=== PATIENT | male | born 1945 | race Caucasian/White ===

== ENCOUNTER 2016-11-15 15:57 | Inpatient (IN) | payer MEDICARE, OTHER ==
--- NOTE | 2016-11-15 16:11 | ED Physician Chart ---
Chief Complaint/HPI - Patient Information Date Seen:: 11/15/16 Time Seen:: 16:00 Chief Complaint:: suicide ideation History of Present Illness:: Patient has dementia. According to the staff at his extended care facility he has expressed recent suicidal ideation although patient currently denies it. Patient has also been refusing medications for the last 3 days. It is also documented in the transfer document that the patient is a flight risk. Historian:: Patient, EMS Review:: Transfer documents Reviewed Review of Systems - Review of Systems General/Constitutional: No fever, No chills Skin: No skin lesions Head: No headache Eyes: No loss of vision ENT: No earache Neck: No neck pain, No swelling Cardio Vascular: No chest pain, No palpitations Pulmonary: No SOB GI: No nausea, No vomiting G/U: No dysuria Musculoskeletal: No bone or joint pain, No muscle pain Endocrine: No polyuria, No polydipsia Psychiatric: Prior psych history Hematopoietic: No bruising Allergic/Immuno: No urticaria Neurological: No syncope, No focal symptoms Past Medical History - Past Medical History Past Medical History: HTN, Dementia, Other (cerebrovascular accidents 2) Family History: None Social History: Smoker, No Alcohol, Care Facility Surgical History: other (patient states he's had several surgeries but can't remember which ones) Psychiatricy History: Depression, Dementia, Other (psychosis) Medication: Reviewed Family Medical History - Family Member Mother History Unknown: Yes Labs/Radiology/EKG Results - Lab Results Results: Laboratory Results - last 24 hr 11/15/16 11/15/16 16:12 16:12 WBC 11.7 H RBC 4.58 Hgb 13.6 Hct 40.8 MCV 89.1 MCH 29.7 MCHC Differential 33.3 RDW 12.6 Plt Count 332 MPV 7.3 Neutrophils % 75.2 Lymphocytes % 15.0 L Monocytes % 8.5 Eosinophils % 0.9 Basophils % 0.4 Sodium 134 L Potassium 4.1 Chloride 103 Carbon Dioxide 27.5 Anion Gap 7.6 BUN 23 Creatinine 1.2 Est GFR ( Amer) > 60.0 Est GFR (Non-Af Amer) > 60.0 BUN/Creatinine Ratio 19.2 Glucose 227 H Calcium 9.3 Total Bilirubin 0.3 AST 14 ALT 14 Alkaline Phosphatase 75 Total Protein 7.0 Albumin 4.4 Globulin 2.6 Albumin/Globulin Ratio 1.7 Triglycerides 362 H Cholesterol 133 LDL Cholesterol Direct 67 L HDL Cholesterol 32 - EKG Interpretations Rate & Rhythm: NSR rate 81 [place]: normal Assessment - Assessment General Assessment: Patient had some right inferior chest and right upper quadrant pain during his stay in the emergency department received rapidly with 30 mL of Maalox ED Septic Shock - . Is Septic Shock (SBP<90, OR Lactate>4 mmol\L) present?: No Reassessment (Disposition) - Diagnosis Diagnosis:: Suicide ideation; dementia; diabetes; hyperglycemia - Patient Disposition Admitted to:: [facility] Admitting Medical Physician:: Gunnar Glez Admitting Psych Physician:: Eric Wood Condition at Disposition:: Stable, Unchanged
[2016-11-15 16:19] LABS: % BASOPHILS 0.4 % (0.0-2.0); % EOSINOPHILS 0.9 % (0.0-5.0); % MONOCYTES 8.5 % (2.0-10.0); % NEUTROPHILS 75.2 % (40.0-80.0); HEMATOCRIT 40.8 % (39.0-49.0); HEMOGLOBIN 13.6 gm/dL (12.6-17.4); MEAN CELL VOLUME 89.1 fl (80-99); MEAN CORPUSCULAR HEMOGLOBIN 29.7 pg (27.0-31.0); MEAN CORPUSCULAR HGB CONC 33.3 pg (28.0-36.0); MEAN PLATELET VOLUME 7.3 fl; NEUTROPHILE ABSOLUTE 8.8 Th/cmm (1.8-8.0); PLATELET COUNT 332 Th/cmm (150-400); RED BLOOD COUNT 4.58 Mil/cmm (3.80-5.80); RED CELL DISTRIBUTION WIDTH 12.6 % (11.5-20.0); WHITE BLOOD COUNT 11.7 Th/cmm (4.8-10.8)
[2016-11-15 16:36] LABS: ALB/GLOB RATIO 1.7 (1.0-1.8); ALKALINE PHOSPHATASE 75 U/L (34-104); ANION GAP 7.6 (7.0-16.0); BILIRUBIN,TOTAL 0.3 mg/dL (0.3-1.0); BUN - UREA NITROGEN 23 mg/dL (7-25); BUN/CREATININE RATIO 19.2; CALCIUM SERUM 9.3 mg/dL (8.6-10.3); CARBON DIOXIDE 27.5 mEq/L (21.0-31.0); CHLORIDE 103 mEq/L (98-107); CHOLESTEROL 133 mg/dL (<200); CREATININE - SERUM 1.2 mg/dL (0.7-1.3); GLUCOSE 227 mg/dL (70-105); POTASSIUM SERUM 4.1 mEq/L (3.5-5.1); SGOT 14 U/L (13-39); SGPT/ALT 14 U/L (7-52); SODIUM SERUM 134 mEq/L (136-145); TRIGLYCERIDES 362 mg/dL (<150)
[2016-11-15] MEDS ORDERED: Maalox 30 mL Cup PO ONE (16:54)
[2016-11-15] MEDS ORDERED: Maalox 30 mL Cup ONE (16:55)
[2016-11-15 17:58] LABS: URINE BILIRUBIN NEGATIVE (NEGATIVE); URINE BLOOD NEGATIVE (NEGATIVE); URINE GLUCOSE (UA) 500 mg/dL (NEGATIVE); URINE KETONE NEGATIVE (NEGATIVE); URINE PROTEIN NEGATIVE (NEGATIVE); URINE UROBILINOGEN 0.2 E.U./dL (0.2 - 1.0)
[2016-11-15 18:03] LABS: URINE BACTERIA OCCASIONAL /hpf (NONE SEEN); URINE COLOR YELLOW; URINE EPITHELIAL CELLS RARE /lpf (FEW); URINE RBC 0-1 /hpf (0-5)
[2016-11-15 19:47] VITALS: BP 135/85
[2016-11-15] MEDS ORDERED: Maalox 30 mL Cup PO PRN (19:48)
[2016-11-15] MEDS ORDERED: Magnesium Hydroxide (MOM) 30 mL UDC PO PRN (19:48)
[2016-11-15] MEDS ORDERED: Escitalopram Oxalate 5 mg Tab PO SCH (21:00)
[2016-11-15] MEDS ORDERED: INSULIN ASPART, RECOMBINANT 100 UNITS/ML SUBQ SCH (21:00)
[2016-11-16] MEDS: INSULIN ASPART, RECOMBINANT 100 UNITS/ML SUBQ SCH ×4 (06:35→21:20)
--- NOTE | 2016-11-16 15:31 | Internal Medicine Prog Note ---
Internal Medicine Subjective - Subjective Service Date: 11/16/16 (hnp dictated) Internal Medicine Objective - Results Result Diagrams: 11/15/16 16:12 11/15/16 16:12 Recent Labs: Laboratory Last Values WBC 11.7 Th/cmm (4.8-10.8) H 11/15/16 16:12 RBC 4.58 Mil/cmm (3.80-5.80) 11/15/16 16:12 Hgb 13.6 gm/dL (12.6-17.4) 11/15/16 16:12 Hct 40.8 % (39.0-49.0) 11/15/16 16:12 MCV 89.1 fl (80-99) 11/15/16 16:12 MCH 29.7 pg (27.0-31.0) 11/15/16 16:12 MCHC Differential 33.3 pg (28.0-36.0) 11/15/16 16:12 RDW 12.6 % (11.5-20.0) 11/15/16 16:12 Plt Count 332 Th/cmm (150-400) 11/15/16 16:12 MPV 7.3 fl 11/15/16 16:12 Neutrophils % 75.2 % (40.0-80.0) 11/15/16 16:12 Lymphocytes % 15.0 % (20.0-50.0) L 11/15/16 16:12 Monocytes % 8.5 % (2.0-10.0) 11/15/16 16:12 Eosinophils % 0.9 % (0.0-5.0) 11/15/16 16:12 Basophils % 0.4 % (0.0-2.0) 11/15/16 16:12 Sodium 134 mEq/L (136-145) L 11/15/16 16:12 Potassium 4.1 mEq/L (3.5-5.1) 11/15/16 16:12 Chloride 103 mEq/L (98-107) 11/15/16 16:12 Carbon Dioxide 27.5 mEq/L (21.0-31.0) 11/15/16 16:12 Anion Gap 7.6 (7.0-16.0) 11/15/16 16:12 BUN 23 mg/dL (7-25) 11/15/16 16:12 Creatinine 1.2 mg/dL (0.7-1.3) 11/15/16 16:12 Est GFR ( Amer) > 60.0 ml/min (>90) 11/15/16 16:12 Est GFR (Non-Af Amer) > 60.0 ml/min 11/15/16 16:12 BUN/Creatinine Ratio 19.2 11/15/16 16:12 Glucose 227 mg/dL (70-105) H 11/15/16 16:12 POC Glucose 228 MG/DL (70 - 105) H 11/16/16 11:33 Hemoglobin A1c % 7.9 % (4.0-6.0) H 11/15/16 16:12 Calcium 9.3 mg/dL (8.6-10.3) 11/15/16 16:12 Total Bilirubin 0.3 mg/dL (0.3-1.0) 11/15/16 16:12 AST 14 U/L (13-39) 11/15/16 16:12 ALT 14 U/L (7-52) 11/15/16 16:12 Alkaline Phosphatase 75 U/L (34-104) 11/15/16 16:12 Total Protein 7.0 gm/dL (6.0-8.3) 11/15/16 16:12 Albumin 4.4 gm/dL (4.2-5.5) 11/15/16 16:12 Globulin 2.6 gm/dL 11/15/16 16:12 Albumin/Globulin Ratio 1.7 (1.0-1.8) 11/15/16 16:12 Triglycerides 362 mg/dL (<150) H 11/15/16 16:12 Cholesterol 133 mg/dL (<200) 11/15/16 16:12 LDL Cholesterol Direct 67 mg/dL (75-193) L 11/15/16 16:12 HDL Cholesterol 32 mg/dL (23-92) 11/15/16 16:12 TSH 1.35 uIU/ml (0.34-5.60) 11/15/16 16:12 Urine Source CLEAN C 11/15/16 17:10 Urine Color YELLOW 11/15/16 17:10 Urine Clarity CLEAR (CLEAR) 11/15/16 17:10 Urine pH 6.0 (4.6 - 8.0) 11/15/16 17:10 Ur Specific [place] 1.020 (1.005-1.030) 11/15/16 17:10 Urine Protein NEGATIVE mg/dL (NEGATIVE) 11/15/16 17:10 Urine Glucose (UA) 500 mg/dL (NEGATIVE) H 11/15/16 17:10 Urine Ketones NEGATIVE mg/dL (NEGATIVE) 11/15/16 17:10 Urine Blood NEGATIVE (NEGATIVE) 11/15/16 17:10 Urine Nitrate NEGATIVE (NEGATIVE) 11/15/16 17:10 Urine Bilirubin NEGATIVE (NEGATIVE) 11/15/16 17:10 Urine Urobilinogen 0.2 E.U./dL (0.2 - 1.0) 11/15/16 17:10 Ur Leukocyte Esterase NEGATIVE (NEGATIVE) 11/15/16 17:10 Urine RBC 0-1 /hpf (0-5) 11/15/16 17:10 Urine WBC 2-5 /hpf (0-5) H 11/15/16 17:10 Ur Epithelial Cells RARE /lpf (FEW) 11/15/16 17:10 Urine Bacteria OCCASIONAL /hpf (NONE SEEN) 11/15/16 17:10 Urine Mucus FEW /lpf (FEW) 11/15/16 17:10 - Physical Exam Vitals and I&O: Vital Signs Temp 98.5 F 11/15/16 17:15 Pulse 78 11/15/16 17:15 Resp 21 11/16/16 08:00 BP 135/85 11/15/16 19:46 Pulse Ox 96 11/15/16 17:15 Active Medications: Current Medications Acetaminophen (Tylenol) 650 mg PO Q6H PRN PRN Reason: Mild Pain/Headache/T above 101 Stop: 01/14/17 19:47 Al Hydrox/Mg Hydrox/Simethicone (Maalox) 30 ml PO Q6H PRN PRN Reason: Dyspepsia Stop: 01/14/17 19:47 Donepezil HCl (Aricept) 10 mg PO HS ELEAZAR Stop: 01/14/17 20:59 Last Admin: 11/15/16 22:11 Dose: 10 mg Escitalopram Oxalate (Lexapro) 5 mg PO HS ELEAZAR PRN Reason: Protocol Stop: 01/14/17 20:59 Insulin Aspart (Novolog) 0 units SUBQ ACHS ELEAZAR PRN Reason: Protocol Stop: 01/15/17 07:29 Last Admin: 11/16/16 11:53 Dose: 2 units Lorazepam (Ativan) 1 mg PO Q6H PRN; Protocol PRN Reason: Anxiety/Agitation Stop: 01/14/17 19:47 Magnesium Hydroxide (Milk Of Magnesia) 30 ml PO HS PRN PRN Reason: Constipation Stop: 01/14/17 19:47 Metformin HCl (Glucophage) 850 mg PO BID ELEAZAR Stop: 01/15/17 08:59 Last Admin: 11/16/16 09:25 Dose: 850 mg Risperidone (Risperdal) 0.25 mg PO HS ELEAZAR Stop: 01/14/17 20:59 Sitagliptin Phosphate (Januvia) 50 mg PO DAILY ELEAZAR Stop: 01/15/17 08:59 Last Admin: 11/16/16 09:31 Dose: 50 mg Zolpidem Tartrate (Ambien) 5 mg PO HS PRN PRN Reason: Insomnia Stop: 01/14/17 19:47 Internal Medicine Assmt/Plan - Assessment Assessment: HTN Dementia si
--- NOTE | 2016-11-16 18:20 | History & Physical ---
ADMIT DATE: 11/16/2016 CHIEF COMPLAINT: : Suicidal ideation. HISTORY OF PRESENT ILLNESS: This is a 70-year-old male who is a resident of [facility], was brought here to [facility] for 1-day history of suicidal ideation. The patient has been also refusing medications for the last 3 days. For this reason, the patient is now admitted to the Geropsych Unit. PAST MEDICAL HISTORY: Hypertension, dementia, CVA x 2. SOCIAL HISTORY: The patient is a shelter resident, requiring 24-hour nursing care. SURGICAL HISTORY: The patient cannot remember whatever surgeries he had. PSYCHIATRIC HISTORY: Depression and dementia. MEDICATIONS: Please see medication reconciliation sheet. REVIEW OF SYSTEMS: GENERAL: Denies any fever or chills. CARDIOVASCULAR: Denies any chest pain. RESPIRATORY: Denies any shortness of breath. GASTROINTESTINAL: Denies nausea, vomiting. GENITOURINARY: Denies dysuria. All other systems are reviewed by me and are negative. PHYSICAL EXAMINATION: GENERAL: The patient is well developed, well nourished, no acute distress. VITAL SIGNS: Temperature 98.5, heart rate 78, blood pressure 133/84, respirations 18, O2 96%. HEENT: Head; normocephalic, atraumatic. NECK: Supple. No mass. LUNGS: Clear bilaterally. HEART: Regular rate and rhythm. ABDOMEN: Soft, nontender. LABORATORY DATA: WBC 11.7, H and H 13.6 and 40.8, platelets 332. Sodium 134, potassium ____, chloride 103, BUN 23, creatinine 1.2, hemoglobin A1c is 7.9. ASSESSMENT: 1. Suicidal ideation. 2. Hypertension. 3. Dementia. PLAN: The patient will be admitted to the Geropsych Unit. The patient to continue same medications the patient was taking at the shelter. We will continue to follow this patient. [facility]# [id number]
[2016-11-16] MEDS: Escitalopram Oxalate 5 mg Tab PO SCH (21:20)
--- NOTE | 2016-11-17 02:51 | Psychosocial Evaluation ---
DATE OF SERVICE: 11/15/2016 IDENTIFYING DATA: The patient is a 70-year-old male, resident of [facility]. Information obtained by directly interviewing the patient as well as reviewing the admission papers and talking to the staff members. The patient has been reported to have been screaming and yelling and getting easily agitated and also has been confused and depressed and hence the patient has been reported over here for further care. The patient is admitted here on a voluntary basis. I have interviewed the patient and Staff was spoken to. During the interview, the patient is stating that he could not bear it out that he needs to go home. At the time of the hospitalization, the patient has been on the Lexapro 5 mg, Risperdal 0.25 mg. The patient continues to be very paranoid and is not making any sense, but patient has been, however, insisting on having his way. PAST PSYCHIATRIC HISTORY: The patient is reported to have been hospitalized at [facility] recently and details are not known at this time. Physical examination is requested to be done by Dr. Glez. SUBSTANCE ABUSE HISTORY: None. PHYSICAL OR SEXUAL ABUSE HISTORY: None. LEGAL PROBLEMS: None at this time. SOCIAL HISTORY: The patient is a resident of the [facility]. STRENGTH AND ASSETS: The patient is motivated. MENTAL STATUS EXAMINATION: The patient is a 70-year-old thin built, superficially cooperative. Eye contact is fair. Mood is irritable. Affect is constricted. Coping skills are noted to be poor. The patient is getting easily agitated. The patient has no insight into his illness. The patient has been testing the limits. The patient's short-term and long-term memory are noted to be impaired. The patient is not able to contract for safety at this time. The patient is reported to have been feeling depressed still, but no suicidal plans or voices. The patient is not homicidal. The patient's short and long-term noted to be impaired. Attention span and concentration are also noted to be poor. DIAGNOSTIC IMPRESSION: AXIS I: Major depressive disorder, recurrent with psychotic symptoms. B. Dementia and behavioral change, secondary to it. AXIS II: None. AXIS III: Diabetes mellitus. IMMEDIATE TREATMENT PLAN: The patient is going to be observed on inpatient unit, provided with supportive psychotherapy. The patient is going to be closely monitored. We encouraged him to participate in groups and verbalize the concerns. Once stabilized, the patient is going to be discharged to self to be followed up on an outpatient basis. [facility]# [id number]
[2016-11-17] MEDS: INSULIN ASPART, RECOMBINANT 100 UNITS/ML SUBQ SCH ×4 (06:50→23:03)
--- NOTE | 2016-11-17 08:54 | Internal Medicine Prog Note ---
Internal Medicine Subjective - Subjective Service Date: 11/17/16 Patient seen and examined:: with staff Patient is:: awake Per staff patient has:: no adverse event Internal Medicine Objective - Results Result Diagrams: 11/15/16 16:12 11/15/16 16:12 Recent Labs: Laboratory Last Values WBC 11.7 Th/cmm (4.8-10.8) H 11/15/16 16:12 RBC 4.58 Mil/cmm (3.80-5.80) 11/15/16 16:12 Hgb 13.6 gm/dL (12.6-17.4) 11/15/16 16:12 Hct 40.8 % (39.0-49.0) 11/15/16 16:12 MCV 89.1 fl (80-99) 11/15/16 16:12 MCH 29.7 pg (27.0-31.0) 11/15/16 16:12 MCHC Differential 33.3 pg (28.0-36.0) 11/15/16 16:12 RDW 12.6 % (11.5-20.0) 11/15/16 16:12 Plt Count 332 Th/cmm (150-400) 11/15/16 16:12 MPV 7.3 fl 11/15/16 16:12 Neutrophils % 75.2 % (40.0-80.0) 11/15/16 16:12 Lymphocytes % 15.0 % (20.0-50.0) L 11/15/16 16:12 Monocytes % 8.5 % (2.0-10.0) 11/15/16 16:12 Eosinophils % 0.9 % (0.0-5.0) 11/15/16 16:12 Basophils % 0.4 % (0.0-2.0) 11/15/16 16:12 Sodium 134 mEq/L (136-145) L 11/15/16 16:12 Potassium 4.1 mEq/L (3.5-5.1) 11/15/16 16:12 Chloride 103 mEq/L (98-107) 11/15/16 16:12 Carbon Dioxide 27.5 mEq/L (21.0-31.0) 11/15/16 16:12 Anion Gap 7.6 (7.0-16.0) 11/15/16 16:12 BUN 23 mg/dL (7-25) 11/15/16 16:12 Creatinine 1.2 mg/dL (0.7-1.3) 11/15/16 16:12 Est GFR ( Amer) > 60.0 ml/min (>90) 11/15/16 16:12 Est GFR (Non-Af Amer) > 60.0 ml/min 11/15/16 16:12 BUN/Creatinine Ratio 19.2 11/15/16 16:12 Glucose 227 mg/dL (70-105) H 11/15/16 16:12 POC Glucose 237 MG/DL (70 - 105) H 11/17/16 06:35 Hemoglobin A1c % 7.9 % (4.0-6.0) H 11/15/16 16:12 Calcium 9.3 mg/dL (8.6-10.3) 11/15/16 16:12 Total Bilirubin 0.3 mg/dL (0.3-1.0) 11/15/16 16:12 AST 14 U/L (13-39) 11/15/16 16:12 ALT 14 U/L (7-52) 11/15/16 16:12 Alkaline Phosphatase 75 U/L (34-104) 11/15/16 16:12 Total Protein 7.0 gm/dL (6.0-8.3) 11/15/16 16:12 Albumin 4.4 gm/dL (4.2-5.5) 11/15/16 16:12 Globulin 2.6 gm/dL 11/15/16 16:12 Albumin/Globulin Ratio 1.7 (1.0-1.8) 11/15/16 16:12 Triglycerides 362 mg/dL (<150) H 11/15/16 16:12 Cholesterol 133 mg/dL (<200) 11/15/16 16:12 LDL Cholesterol Direct 67 mg/dL (75-193) L 11/15/16 16:12 HDL Cholesterol 32 mg/dL (23-92) 11/15/16 16:12 TSH 1.35 uIU/ml (0.34-5.60) 11/15/16 16:12 Urine Source CLEAN C 11/15/16 17:10 Urine Color YELLOW 11/15/16 17:10 Urine Clarity CLEAR (CLEAR) 11/15/16 17:10 Urine pH 6.0 (4.6 - 8.0) 11/15/16 17:10 Ur Specific [place] 1.020 (1.005-1.030) 11/15/16 17:10 Urine Protein NEGATIVE mg/dL (NEGATIVE) 11/15/16 17:10 Urine Glucose (UA) 500 mg/dL (NEGATIVE) H 11/15/16 17:10 Urine Ketones NEGATIVE mg/dL (NEGATIVE) 11/15/16 17:10 Urine Blood NEGATIVE (NEGATIVE) 11/15/16 17:10 Urine Nitrate NEGATIVE (NEGATIVE) 11/15/16 17:10 Urine Bilirubin NEGATIVE (NEGATIVE) 11/15/16 17:10 Urine Urobilinogen 0.2 E.U./dL (0.2 - 1.0) 11/15/16 17:10 Ur Leukocyte Esterase NEGATIVE (NEGATIVE) 11/15/16 17:10 Urine RBC 0-1 /hpf (0-5) 11/15/16 17:10 Urine WBC 2-5 /hpf (0-5) H 11/15/16 17:10 Ur Epithelial Cells RARE /lpf (FEW) 11/15/16 17:10 Urine Bacteria OCCASIONAL /hpf (NONE SEEN) 11/15/16 17:10 Urine Mucus FEW /lpf (FEW) 11/15/16 17:10 RPR NONREACTIVE (NONREACTIVE) 11/15/16 16:12 - Physical Exam Vitals and I&O: Vital Signs Temp 98.1 F 11/17/16 06:04 Pulse 96 11/17/16 06:04 Resp 20 11/17/16 06:04 BP 140/78 11/17/16 06:04 Pulse Ox 98 11/17/16 06:04 Intake & Output 11/16/16 11/17/16 11/17/16 18:59 06:59 18:59 Intake Total 800 720 Balance 800 720 Intake: Oral 800 720 Other: # Voids 3 1 # Bowel Movements 1 Active Medications: Current Medications Acetaminophen (Tylenol) 650 mg PO Q6H PRN PRN Reason: Mild Pain/Headache/T above 101 Stop: 01/14/17 19:47 Al Hydrox/Mg Hydrox/Simethicone (Maalox) 30 ml PO Q6H PRN PRN Reason: Dyspepsia Stop: 01/14/17 19:47 Donepezil HCl (Aricept) 10 mg PO HS ELEAZAR Stop: 01/14/17 20:59 Last Admin: 11/16/16 21:20 Dose: 10 mg Escitalopram Oxalate (Lexapro) 10 mg PO HS ELEAZAR PRN Reason: Protocol Stop: 01/15/17 20:59 Last Admin: 11/16/16 21:20 Dose: 10 mg Insulin Aspart (Novolog) 0 units SUBQ ACHS ELEAZAR PRN Reason: Protocol Stop: 01/15/17 07:29 Last Admin: 11/17/16 06:50 Dose: 2 units Lorazepam (Ativan) 1 mg PO Q6H PRN; Protocol PRN Reason: Anxiety/Agitation Stop: 01/14/17 19:47 Magnesium Hydroxide (Milk Of Magnesia) 30 ml PO HS PRN PRN Reason: Constipation Stop: 01/14/17 19:47 Metformin HCl (Glucophage) 850 mg PO BID ELEAZAR Stop: 01/15/17 08:59 Last Admin: 11/16/16 17:12 Dose: 850 mg Risperidone (Risperdal) 0.25 mg PO HS ELEAZAR Stop: 01/14/17 20:59 Sitagliptin Phosphate (Januvia) 50 mg PO DAILY ELEAZAR Stop: 01/15/17 08:59 Last Admin: 11/16/16 09:31 Dose: 50 mg Zolpidem Tartrate (Ambien) 5 mg PO HS PRN PRN Reason: Insomnia Stop: 01/14/17 19:47 General: alert HEENT: NC/AT, PERRLA Neck: Supple Lungs: CTAB Cardiovascular: RRR, Normal S1, Normal S2, without murmur Abdomen: soft, non-tender, non-distended Extremities: clear Neurological: no change, alert Internal Medicine Assmt/Plan - Assessment Assessment: HTN Dementia si - Plan Plan: monitor bp continue bp meds psych f/u Nutritional Asmnt/Malnutr-PDOC - Dietary Evaluation Malnutrition Findings (Please click <Entered> for more info): Nutritional Asmnt/Malnutrition Start: 11/16/16 12: 33 Text: Status: Complete Freq: Document 11/16/16 18:16 [facility] (Rec: 11/16/16 18:23 [facility] [id number]) Nutritional Asmnt/Malnutrition Patient General Information Nutritional Screening High Risk Screening Diagnosis Suicide ideation, hyperglycemia Pertinent Medical Hx/Surgical Hx HTN, dementia, CVAx2, depression, psychosis Subjective Information Pt is a 70-year-old male from [facility] admitted with chief complaint of suicidal ideation. Pt has dementia and per RN notes, pt is confused. Current Diet Order/ Nutrition Support CCHO, low sodium, mechanical soft chopped Patient / S.O Can't verbalize diet edu Pertinent Medications Glucophage, Januvia Pertinent Labs (11/15) Glucose 227H, A1C 7.9H, Triglycerides 362H. (11/16) POC Glucose 177-228H Nutritional Hx/Data Height 6 ft Height (Calculated Centimeters) 182.9 Current Weight (lbs) 186 lb Weight (Calculated Kilograms) 84.4 Weight (Calculated Grams) 03518.2 [place] Body Weight 172 % [place] Body Weight 108 Weight Status Approriate GI Symptoms GI Symptoms None Food Allergies No Usual diet at home Mechanical soft, CCHO, ERI Skin Integrity/Comment: [place] 19. Skin intact. Current %PO Good (75-100%) Estimated Nutritional Goals BEE in Kcals: Using Current wt Calories/Kcals/Kg Based on current wt 84.5 kg Kcals Calculated 2494-6334 kcals/day (25-30 kcals/kg) Protein: Using Current wt Protein g/kg: Based on current wt 84.5 kg Protein Calculated 85 gm/day (1 gm/kg) Fluid: ml 4397-4330 ml/day (1 ml/kcal) Nutritional Problem 1. Problem Problem Altered nutrition-related laboratory value related to Etiology DM, possible inconsistent carbohydrate intake as evidenced by Signs/Symptoms: A1C 7.9%, admitting glucose 227 mg/dl. Malnutrition Related to Morbid Obesity Malnutrition related to morbid obesity No Intervention/Recommendation Recommendations by RD Dietary Education by RD1 Increase Calorie Intake Comments 1. Recommend CCHO-90 GM to better meet pt's nutritional needs. Adequate carbohydrate intake will help to regulate blood glucose. 2. Educate pt or family on CCHO diet, as able. Expected Outcomes/Goals Expected Outcomes/Goals Blood glucose levels will trend towards desired parameters. Physician Parameters for PEM Normal Weight % 90% - 110% (Normal) Body Mass Index (BMI) 19 - 24 (Normal) Serum Albumin (g/dl) 3.5 - 5.0 (Normal)
--- NOTE | 2016-11-17 12:02 | Progress Notes ---
DATE: 11/17/2016 SUBJECTIVE: Staff was spoken to. The patient is interviewed. Mood is noted to be irritable. Affect is constricted. Coping skills are noted to be very poor. Insight and judgment are also noted very poor. The patient has been having difficult time to cope with the stress. The patient is demanding that he should be discharged back to the facility stating that he does not like getting here. No side effects to the medications are noted. The patient is currently on 0.25 mg of Risperdal. PLAN: Plan to increase the dose on this medication to 0.5 mg and I encouraged the patient to verbalize the concerns rather than to act out. He is still psychotic and impulsive and the patient has been having difficult time to ____. JOB# [id number]
[2016-11-17] MEDS: Escitalopram Oxalate 5 mg Tab PO SCH (20:54)
[2016-11-18] MEDS: INSULIN ASPART, RECOMBINANT 100 UNITS/ML SUBQ SCH ×4 (06:36→20:50)
--- NOTE | 2016-11-18 08:59 | Internal Medicine Prog Note ---
Internal Medicine Subjective - Subjective Service Date: 11/18/16 Patient is:: awake Per staff patient has:: no adverse event Internal Medicine Objective - Results Result Diagrams: 11/15/16 16:12 11/15/16 16:12 Recent Labs: Laboratory Last Values WBC 11.7 Th/cmm (4.8-10.8) H 11/15/16 16:12 RBC 4.58 Mil/cmm (3.80-5.80) 11/15/16 16:12 Hgb 13.6 gm/dL (12.6-17.4) 11/15/16 16:12 Hct 40.8 % (39.0-49.0) 11/15/16 16:12 MCV 89.1 fl (80-99) 11/15/16 16:12 MCH 29.7 pg (27.0-31.0) 11/15/16 16:12 MCHC Differential 33.3 pg (28.0-36.0) 11/15/16 16:12 RDW 12.6 % (11.5-20.0) 11/15/16 16:12 Plt Count 332 Th/cmm (150-400) 11/15/16 16:12 MPV 7.3 fl 11/15/16 16:12 Neutrophils % 75.2 % (40.0-80.0) 11/15/16 16:12 Lymphocytes % 15.0 % (20.0-50.0) L 11/15/16 16:12 Monocytes % 8.5 % (2.0-10.0) 11/15/16 16:12 Eosinophils % 0.9 % (0.0-5.0) 11/15/16 16:12 Basophils % 0.4 % (0.0-2.0) 11/15/16 16:12 Sodium 134 mEq/L (136-145) L 11/15/16 16:12 Potassium 4.1 mEq/L (3.5-5.1) 11/15/16 16:12 Chloride 103 mEq/L (98-107) 11/15/16 16:12 Carbon Dioxide 27.5 mEq/L (21.0-31.0) 11/15/16 16:12 Anion Gap 7.6 (7.0-16.0) 11/15/16 16:12 BUN 23 mg/dL (7-25) 11/15/16 16:12 Creatinine 1.2 mg/dL (0.7-1.3) 11/15/16 16:12 Est GFR ( Amer) > 60.0 ml/min (>90) 11/15/16 16:12 Est GFR (Non-Af Amer) > 60.0 ml/min 11/15/16 16:12 BUN/Creatinine Ratio 19.2 11/15/16 16:12 Glucose 227 mg/dL (70-105) H 11/15/16 16:12 POC Glucose 216 MG/DL (70 - 105) H 11/18/16 06:29 Hemoglobin A1c % 7.9 % (4.0-6.0) H 11/15/16 16:12 Calcium 9.3 mg/dL (8.6-10.3) 11/15/16 16:12 Total Bilirubin 0.3 mg/dL (0.3-1.0) 11/15/16 16:12 AST 14 U/L (13-39) 11/15/16 16:12 ALT 14 U/L (7-52) 11/15/16 16:12 Alkaline Phosphatase 75 U/L (34-104) 11/15/16 16:12 Total Protein 7.0 gm/dL (6.0-8.3) 11/15/16 16:12 Albumin 4.4 gm/dL (4.2-5.5) 11/15/16 16:12 Globulin 2.6 gm/dL 11/15/16 16:12 Albumin/Globulin Ratio 1.7 (1.0-1.8) 11/15/16 16:12 Triglycerides 362 mg/dL (<150) H 11/15/16 16:12 Cholesterol 133 mg/dL (<200) 11/15/16 16:12 LDL Cholesterol Direct 67 mg/dL (75-193) L 11/15/16 16:12 HDL Cholesterol 32 mg/dL (23-92) 11/15/16 16:12 TSH 1.35 uIU/ml (0.34-5.60) 11/15/16 16:12 Urine Source CLEAN C 11/15/16 17:10 Urine Color YELLOW 11/15/16 17:10 Urine Clarity CLEAR (CLEAR) 11/15/16 17:10 Urine pH 6.0 (4.6 - 8.0) 11/15/16 17:10 Ur Specific [place] 1.020 (1.005-1.030) 11/15/16 17:10 Urine Protein NEGATIVE mg/dL (NEGATIVE) 11/15/16 17:10 Urine Glucose (UA) 500 mg/dL (NEGATIVE) H 11/15/16 17:10 Urine Ketones NEGATIVE mg/dL (NEGATIVE) 11/15/16 17:10 Urine Blood NEGATIVE (NEGATIVE) 11/15/16 17:10 Urine Nitrate NEGATIVE (NEGATIVE) 11/15/16 17:10 Urine Bilirubin NEGATIVE (NEGATIVE) 11/15/16 17:10 Urine Urobilinogen 0.2 E.U./dL (0.2 - 1.0) 11/15/16 17:10 Ur Leukocyte Esterase NEGATIVE (NEGATIVE) 11/15/16 17:10 Urine RBC 0-1 /hpf (0-5) 11/15/16 17:10 Urine WBC 2-5 /hpf (0-5) H 11/15/16 17:10 Ur Epithelial Cells RARE /lpf (FEW) 11/15/16 17:10 Urine Bacteria OCCASIONAL /hpf (NONE SEEN) 11/15/16 17:10 Urine Mucus FEW /lpf (FEW) 11/15/16 17:10 RPR NONREACTIVE (NONREACTIVE) 11/15/16 16:12 - Physical Exam Vitals and I&O: Vital Signs Temp 97.4 F 11/18/16 06:59 Pulse 74 11/18/16 06:59 Resp 20 11/18/16 06:59 BP 126/62 11/18/16 06:59 Pulse Ox 97 11/18/16 06:59 Intake & Output 11/17/16 11/18/16 11/18/16 18:59 06:59 18:59 Intake Total 120 Balance 120 Intake: Oral 120 Other: # Voids 3 Active Medications: Current Medications Acetaminophen (Tylenol) 650 mg PO Q6H PRN PRN Reason: Mild Pain/Headache/T above 101 Stop: 01/14/17 19:47 Al Hydrox/Mg Hydrox/Simethicone (Maalox) 30 ml PO Q6H PRN PRN Reason: Dyspepsia Stop: 01/14/17 19:47 Donepezil HCl (Aricept) 10 mg PO HS ELEAZAR Stop: 01/14/17 20:59 Last Admin: 11/17/16 20:53 Dose: 10 mg Escitalopram Oxalate (Lexapro) 10 mg PO HS ELEAZAR PRN Reason: Protocol Stop: 01/15/17 20:59 Last Admin: 11/17/16 20:54 Dose: 10 mg Insulin Aspart (Novolog) 0 units SUBQ ACHS ELEAZAR PRN Reason: Protocol Stop: 01/15/17 07:29 Last Admin: 11/18/16 06:36 Dose: 2 units Lorazepam (Ativan) 1 mg PO Q6H PRN; Protocol PRN Reason: Anxiety/Agitation Stop: 01/14/17 19:47 Last Admin: 11/17/16 18:59 Dose: 1 mg Magnesium Hydroxide (Milk Of Magnesia) 30 ml PO HS PRN PRN Reason: Constipation Stop: 01/14/17 19:47 Metformin HCl (Glucophage) 850 mg PO BID ELEAZAR Stop: 01/15/17 08:59 Last Admin: 11/17/16 16:41 Dose: 850 mg Risperidone (Risperdal) 0.5 mg PO HS ELEAZAR Stop: 01/14/17 20:59 Last Admin: 11/17/16 20:53 Dose: 0.5 mg Sitagliptin Phosphate (Januvia) 50 mg PO DAILY [facility] Stop: 01/15/17 08:59 Last Admin: 11/17/16 09:14 Dose: 50 mg Zolpidem Tartrate (Ambien) 5 mg PO HS PRN PRN Reason: Insomnia Stop: 01/14/17 19:47 General: alert HEENT: NC/AT, PERRLA Neck: Supple Lungs: CTAB Cardiovascular: RRR, Normal S1, Normal S2, without murmur Abdomen: soft, non-tender, non-distended Extremities: clear Neurological: no change, alert Internal Medicine Assmt/Plan - Assessment Assessment: HTN Dementia si - Plan Plan: monitor bp continue bp meds psych f/u Nutritional Asmnt/Malnutr-PDOC - Dietary Evaluation Malnutrition Findings (Please click <Entered> for more info): Nutritional Asmnt/Malnutrition Start: 11/16/16 12: 33 Text: Status: Complete Freq: Document 11/16/16 18:16 [facility] (Rec: 11/16/16 18:23 [facility] [id number]) Nutritional Asmnt/Malnutrition Patient General Information Nutritional Screening High Risk Screening Diagnosis Suicide ideation, hyperglycemia Pertinent Medical Hx/Surgical Hx HTN, dementia, CVAx2, depression, psychosis Subjective Information Pt is a 70-year-old male from [facility] admitted with chief complaint of suicidal ideation. Pt has dementia and per RN notes, pt is confused. Current Diet Order/ Nutrition Support CCHO, low sodium, mechanical soft chopped Patient / S.O Can't verbalize diet edu Pertinent Medications Glucophage, Januvia Pertinent Labs (11/15) Glucose 227H, A1C 7.9H, Triglycerides 362H. (11/16) POC Glucose 177-228H Nutritional Hx/Data Height 6 ft Height (Calculated Centimeters) 182.9 Current Weight (lbs) 186 lb Weight (Calculated Kilograms) 84.4 Weight (Calculated Grams) 81058.2 [place] Body Weight 172 % [place] Body Weight 108 Weight Status Approriate GI Symptoms GI Symptoms None Food Allergies No Usual diet at home Mechanical soft, CCHO, ERI Skin Integrity/Comment: [place] 19. Skin intact. Current %PO Good (75-100%) Estimated Nutritional Goals BEE in Kcals: Using Current wt Calories/Kcals/Kg Based on current wt 84.5 kg Kcals Calculated 4034-1283 kcals/day (25-30 kcals/kg) Protein: Using Current wt Protein g/kg: Based on current wt 84.5 kg Protein Calculated 85 gm/day (1 gm/kg) Fluid: ml 0284-1260 ml/day (1 ml/kcal) Nutritional Problem 1. Problem Problem Altered nutrition-related laboratory value related to Etiology DM, possible inconsistent carbohydrate intake as evidenced by Signs/Symptoms: A1C 7.9%, admitting glucose 227 mg/dl. Malnutrition Related to Morbid Obesity Malnutrition related to morbid obesity No Intervention/Recommendation Recommendations by RD Dietary Education by RD1 Increase Calorie Intake Comments 1. Recommend CCHO-90 GM to better meet pt's nutritional needs. Adequate carbohydrate intake will help to regulate blood glucose. 2. Educate pt or family on CCHO diet, as able. Expected Outcomes/Goals Expected Outcomes/Goals Blood glucose levels will trend towards desired parameters. Physician Parameters for PEM Normal Weight % 90% - 110% (Normal) Body Mass Index (BMI) 19 - 24 (Normal) Serum Albumin (g/dl) 3.5 - 5.0 (Normal)
--- NOTE | 2016-11-18 20:03 | Progress Notes ---
DATE: 11/18/2016 PSYCHIATRIC PROGRESS NOTE SUBJECTIVE: Staff was spoken to. The patient is interviewed. Mood is noted to be irritable. Affect is constricted. Insight and judgment are noted to be still impaired. Impulse control is noted to be limited. The patient continues to be isolative and withdrawn. The patient is currently on Risperdal and Lexapro and has been able to tolerate the medication, but the patient continues to be very paranoid. ASSESSMENT: The patient is still impulsive and depressed. PLAN: To continue the patient with the current medications. I encouraged the patient to verbalize the concerns rather than to act out. JOB# [id number]
[2016-11-18] MEDS: Escitalopram Oxalate 5 mg Tab PO SCH (20:15)
[2016-11-19] MEDS: INSULIN ASPART, RECOMBINANT 100 UNITS/ML SUBQ SCH ×4 (06:46→20:22)
--- NOTE | 2016-11-19 12:29 | Internal Medicine Prog Note ---
Internal Medicine Subjective - Subjective Service Date: 11/19/16 Patient is:: awake Per staff patient has:: no adverse event Internal Medicine Objective - Results Result Diagrams: 11/15/16 16:12 11/15/16 16:12 Recent Labs: Laboratory Last Values WBC 11.7 Th/cmm (4.8-10.8) H 11/15/16 16:12 RBC 4.58 Mil/cmm (3.80-5.80) 11/15/16 16:12 Hgb 13.6 gm/dL (12.6-17.4) 11/15/16 16:12 Hct 40.8 % (39.0-49.0) 11/15/16 16:12 MCV 89.1 fl (80-99) 11/15/16 16:12 MCH 29.7 pg (27.0-31.0) 11/15/16 16:12 MCHC Differential 33.3 pg (28.0-36.0) 11/15/16 16:12 RDW 12.6 % (11.5-20.0) 11/15/16 16:12 Plt Count 332 Th/cmm (150-400) 11/15/16 16:12 MPV 7.3 fl 11/15/16 16:12 Neutrophils % 75.2 % (40.0-80.0) 11/15/16 16:12 Lymphocytes % 15.0 % (20.0-50.0) L 11/15/16 16:12 Monocytes % 8.5 % (2.0-10.0) 11/15/16 16:12 Eosinophils % 0.9 % (0.0-5.0) 11/15/16 16:12 Basophils % 0.4 % (0.0-2.0) 11/15/16 16:12 Sodium 134 mEq/L (136-145) L 11/15/16 16:12 Potassium 4.1 mEq/L (3.5-5.1) 11/15/16 16:12 Chloride 103 mEq/L (98-107) 11/15/16 16:12 Carbon Dioxide 27.5 mEq/L (21.0-31.0) 11/15/16 16:12 Anion Gap 7.6 (7.0-16.0) 11/15/16 16:12 BUN 23 mg/dL (7-25) 11/15/16 16:12 Creatinine 1.2 mg/dL (0.7-1.3) 11/15/16 16:12 Est GFR ( Amer) > 60.0 ml/min (>90) 11/15/16 16:12 Est GFR (Non-Af Amer) > 60.0 ml/min 11/15/16 16:12 BUN/Creatinine Ratio 19.2 11/15/16 16:12 Glucose 227 mg/dL (70-105) H 11/15/16 16:12 POC Glucose 158 MG/DL (70 - 105) H 11/19/16 06:26 Hemoglobin A1c % 7.9 % (4.0-6.0) H 11/15/16 16:12 Calcium 9.3 mg/dL (8.6-10.3) 11/15/16 16:12 Total Bilirubin 0.3 mg/dL (0.3-1.0) 11/15/16 16:12 AST 14 U/L (13-39) 11/15/16 16:12 ALT 14 U/L (7-52) 11/15/16 16:12 Alkaline Phosphatase 75 U/L (34-104) 11/15/16 16:12 Total Protein 7.0 gm/dL (6.0-8.3) 11/15/16 16:12 Albumin 4.4 gm/dL (4.2-5.5) 11/15/16 16:12 Globulin 2.6 gm/dL 11/15/16 16:12 Albumin/Globulin Ratio 1.7 (1.0-1.8) 11/15/16 16:12 Triglycerides 362 mg/dL (<150) H 11/15/16 16:12 Cholesterol 133 mg/dL (<200) 11/15/16 16:12 LDL Cholesterol Direct 67 mg/dL (75-193) L 11/15/16 16:12 HDL Cholesterol 32 mg/dL (23-92) 11/15/16 16:12 TSH 1.35 uIU/ml (0.34-5.60) 11/15/16 16:12 Urine Source CLEAN C 11/15/16 17:10 Urine Color YELLOW 11/15/16 17:10 Urine Clarity CLEAR (CLEAR) 11/15/16 17:10 Urine pH 6.0 (4.6 - 8.0) 11/15/16 17:10 Ur Specific [place] 1.020 (1.005-1.030) 11/15/16 17:10 Urine Protein NEGATIVE mg/dL (NEGATIVE) 11/15/16 17:10 Urine Glucose (UA) 500 mg/dL (NEGATIVE) H 11/15/16 17:10 Urine Ketones NEGATIVE mg/dL (NEGATIVE) 11/15/16 17:10 Urine Blood NEGATIVE (NEGATIVE) 11/15/16 17:10 Urine Nitrate NEGATIVE (NEGATIVE) 11/15/16 17:10 Urine Bilirubin NEGATIVE (NEGATIVE) 11/15/16 17:10 Urine Urobilinogen 0.2 E.U./dL (0.2 - 1.0) 11/15/16 17:10 Ur Leukocyte Esterase NEGATIVE (NEGATIVE) 11/15/16 17:10 Urine RBC 0-1 /hpf (0-5) 11/15/16 17:10 Urine WBC 2-5 /hpf (0-5) H 11/15/16 17:10 Ur Epithelial Cells RARE /lpf (FEW) 11/15/16 17:10 Urine Bacteria OCCASIONAL /hpf (NONE SEEN) 11/15/16 17:10 Urine Mucus FEW /lpf (FEW) 11/15/16 17:10 RPR NONREACTIVE (NONREACTIVE) 11/15/16 16:12 - Physical Exam Vitals and I&O: Vital Signs Temp 98.4 F 11/19/16 05:34 Pulse 75 11/19/16 05:34 Resp 20 11/19/16 05:34 BP 115/76 11/19/16 05:34 Pulse Ox 95 11/19/16 05:34 Intake & Output 11/18/16 11/19/16 11/19/16 18:59 06:59 18:59 Intake Total 650 Balance 650 Intake: Oral 650 Other: # Voids 3 2 # Bowel Movements 1 1 Active Medications: Current Medications Acetaminophen (Tylenol) 650 mg PO Q6H PRN PRN Reason: Mild Pain/Headache/T above 101 Stop: 01/14/17 19:47 Al Hydrox/Mg Hydrox/Simethicone (Maalox) 30 ml PO Q6H PRN PRN Reason: Dyspepsia Stop: 01/14/17 19:47 Donepezil HCl (Aricept) 10 mg PO HS ELEAZAR Stop: 01/14/17 20:59 Last Admin: 11/18/16 20:15 Dose: 10 mg Escitalopram Oxalate (Lexapro) 10 mg PO HS ELEAZAR PRN Reason: Protocol Stop: 01/15/17 20:59 Last Admin: 11/18/16 20:15 Dose: 10 mg Insulin Aspart (Novolog) 0 units SUBQ ACHS ELEAZAR PRN Reason: Protocol Stop: 01/15/17 07:29 Last Admin: 11/19/16 06:46 Dose: Not Given Lorazepam (Ativan) 1 mg PO Q6H PRN; Protocol PRN Reason: Anxiety/Agitation Stop: 01/14/17 19:47 Last Admin: 11/19/16 08:35 Dose: 1 mg Magnesium Hydroxide (Milk Of Magnesia) 30 ml PO HS PRN PRN Reason: Constipation Stop: 01/14/17 19:47 Metformin HCl (Glucophage) 850 mg PO BID [facility] Stop: 01/15/17 08:59 Last Admin: 11/19/16 08:35 Dose: 850 mg Risperidone (Risperdal) 0.5 mg PO BID [facility] Stop: 01/18/17 16:59 Sitagliptin Phosphate (Januvia) 50 mg PO DAILY [facility] Stop: 01/15/17 08:59 Last Admin: 11/19/16 08:34 Dose: 50 mg Zolpidem Tartrate (Ambien) 5 mg PO HS PRN PRN Reason: Insomnia Stop: 01/14/17 19:47 General: alert HEENT: NC/AT, PERRLA Neck: Supple Lungs: CTAB Cardiovascular: RRR, Normal S1, Normal S2, without murmur Abdomen: soft, non-tender, non-distended Extremities: clear Neurological: no change, alert Internal Medicine Assmt/Plan - Assessment Assessment: HTN Dementia si - Plan Plan: monitor bp continue bp meds psych f/u Nutritional Asmnt/Malnutr-PDOC - Dietary Evaluation Malnutrition Findings (Please click <Entered> for more info): Nutritional Asmnt/Malnutrition Start: 11/16/16 12: 33 Text: Status: Complete Freq: Document 11/16/16 18:16 [facility] (Rec: 11/16/16 18:23 [facility] [id number]) Nutritional Asmnt/Malnutrition Patient General Information Nutritional Screening High Risk Screening Diagnosis Suicide ideation, hyperglycemia Pertinent Medical Hx/Surgical Hx HTN, dementia, CVAx2, depression, psychosis Subjective Information Pt is a 70-year-old male from [facility] admitted with chief complaint of suicidal ideation. Pt has dementia and per RN notes, pt is confused. Current Diet Order/ Nutrition Support CCHO, low sodium, mechanical soft chopped Patient / S.O Can't verbalize diet edu Pertinent Medications Glucophage, Januvia Pertinent Labs (11/15) Glucose 227H, A1C 7.9H, Triglycerides 362H. (11/16) POC Glucose 177-228H Nutritional Hx/Data Height 6 ft Height (Calculated Centimeters) 182.9 Current Weight (lbs) 186 lb Weight (Calculated Kilograms) 84.4 Weight (Calculated Grams) 47428.2 [place] Body Weight 172 % [place] Body Weight 108 Weight Status Approriate GI Symptoms GI Symptoms None Food Allergies No Usual diet at home Mechanical soft, CCHO, ERI Skin Integrity/Comment: [place] 19. Skin intact. Current %PO Good (75-100%) Estimated Nutritional Goals BEE in Kcals: Using Current wt Calories/Kcals/Kg Based on current wt 84.5 kg Kcals Calculated 3000-1241 kcals/day (25-30 kcals/kg) Protein: Using Current wt Protein g/kg: Based on current wt 84.5 kg Protein Calculated 85 gm/day (1 gm/kg) Fluid: ml 8318-7634 ml/day (1 ml/kcal) Nutritional Problem 1. Problem Problem Altered nutrition-related laboratory value related to Etiology DM, possible inconsistent carbohydrate intake as evidenced by Signs/Symptoms: A1C 7.9%, admitting glucose 227 mg/dl. Malnutrition Related to Morbid Obesity Malnutrition related to morbid obesity No Intervention/Recommendation Recommendations by RD Dietary Education by RD1 Increase Calorie Intake Comments 1. Recommend CCHO-90 GM to better meet pt's nutritional needs. Adequate carbohydrate intake will help to regulate blood glucose. 2. Educate pt or family on CCHO diet, as able. Expected Outcomes/Goals Expected Outcomes/Goals Blood glucose levels will trend towards desired parameters. Physician Parameters for PEM Normal Weight % 90% - 110% (Normal) Body Mass Index (BMI) 19 - 24 (Normal) Serum Albumin (g/dl) 3.5 - 5.0 (Normal)
--- NOTE | 2016-11-19 18:45 | Progress Notes ---
DATE: 11/19/2016 SUBJECTIVE: Staff was spoken to. The patient is interviewed. Mood is noted to be irritable. Affect is constricted. Insight and judgment at this time are noted to be still impaired. Impulse control seems to be poor. The patient has been depressed and has been paranoid . The patient has no insight into his illness. ASSESSMENT: The patient is still psychotic and depressed. PLAN: To continue the patient with the current medications and followup. JOB# [id number]
[2016-11-19] MEDS: Escitalopram Oxalate 5 mg Tab PO SCH (20:20)
[2016-11-20] MEDS: INSULIN ASPART, RECOMBINANT 100 UNITS/ML SUBQ SCH ×4 (06:35→20:49)
--- NOTE | 2016-11-20 15:03 | Internal Medicine Prog Note ---
Internal Medicine Subjective - Subjective Service Date: 11/20/16 Patient is:: awake Per staff patient has:: no adverse event Internal Medicine Objective - Results Result Diagrams: 11/15/16 16:12 11/15/16 16:12 Recent Labs: Laboratory Last Values WBC 11.7 Th/cmm (4.8-10.8) H 11/15/16 16:12 RBC 4.58 Mil/cmm (3.80-5.80) 11/15/16 16:12 Hgb 13.6 gm/dL (12.6-17.4) 11/15/16 16:12 Hct 40.8 % (39.0-49.0) 11/15/16 16:12 MCV 89.1 fl (80-99) 11/15/16 16:12 MCH 29.7 pg (27.0-31.0) 11/15/16 16:12 MCHC Differential 33.3 pg (28.0-36.0) 11/15/16 16:12 RDW 12.6 % (11.5-20.0) 11/15/16 16:12 Plt Count 332 Th/cmm (150-400) 11/15/16 16:12 MPV 7.3 fl 11/15/16 16:12 Neutrophils % 75.2 % (40.0-80.0) 11/15/16 16:12 Lymphocytes % 15.0 % (20.0-50.0) L 11/15/16 16:12 Monocytes % 8.5 % (2.0-10.0) 11/15/16 16:12 Eosinophils % 0.9 % (0.0-5.0) 11/15/16 16:12 Basophils % 0.4 % (0.0-2.0) 11/15/16 16:12 Sodium 134 mEq/L (136-145) L 11/15/16 16:12 Potassium 4.1 mEq/L (3.5-5.1) 11/15/16 16:12 Chloride 103 mEq/L (98-107) 11/15/16 16:12 Carbon Dioxide 27.5 mEq/L (21.0-31.0) 11/15/16 16:12 Anion Gap 7.6 (7.0-16.0) 11/15/16 16:12 BUN 23 mg/dL (7-25) 11/15/16 16:12 Creatinine 1.2 mg/dL (0.7-1.3) 11/15/16 16:12 Est GFR ( Amer) > 60.0 ml/min (>90) 11/15/16 16:12 Est GFR (Non-Af Amer) > 60.0 ml/min 11/15/16 16:12 BUN/Creatinine Ratio 19.2 11/15/16 16:12 Glucose 227 mg/dL (70-105) H 11/15/16 16:12 POC Glucose 247 MG/DL (70 - 105) H 11/20/16 11:15 Hemoglobin A1c % 7.9 % (4.0-6.0) H 11/15/16 16:12 Calcium 9.3 mg/dL (8.6-10.3) 11/15/16 16:12 Total Bilirubin 0.3 mg/dL (0.3-1.0) 11/15/16 16:12 AST 14 U/L (13-39) 11/15/16 16:12 ALT 14 U/L (7-52) 11/15/16 16:12 Alkaline Phosphatase 75 U/L (34-104) 11/15/16 16:12 Total Protein 7.0 gm/dL (6.0-8.3) 11/15/16 16:12 Albumin 4.4 gm/dL (4.2-5.5) 11/15/16 16:12 Globulin 2.6 gm/dL 11/15/16 16:12 Albumin/Globulin Ratio 1.7 (1.0-1.8) 11/15/16 16:12 Triglycerides 362 mg/dL (<150) H 11/15/16 16:12 Cholesterol 133 mg/dL (<200) 11/15/16 16:12 LDL Cholesterol Direct 67 mg/dL (75-193) L 11/15/16 16:12 HDL Cholesterol 32 mg/dL (23-92) 11/15/16 16:12 TSH 1.35 uIU/ml (0.34-5.60) 11/15/16 16:12 Urine Source CLEAN C 11/15/16 17:10 Urine Color YELLOW 11/15/16 17:10 Urine Clarity CLEAR (CLEAR) 11/15/16 17:10 Urine pH 6.0 (4.6 - 8.0) 11/15/16 17:10 Ur Specific [place] 1.020 (1.005-1.030) 11/15/16 17:10 Urine Protein NEGATIVE mg/dL (NEGATIVE) 11/15/16 17:10 Urine Glucose (UA) 500 mg/dL (NEGATIVE) H 11/15/16 17:10 Urine Ketones NEGATIVE mg/dL (NEGATIVE) 11/15/16 17:10 Urine Blood NEGATIVE (NEGATIVE) 11/15/16 17:10 Urine Nitrate NEGATIVE (NEGATIVE) 11/15/16 17:10 Urine Bilirubin NEGATIVE (NEGATIVE) 11/15/16 17:10 Urine Urobilinogen 0.2 E.U./dL (0.2 - 1.0) 11/15/16 17:10 Ur Leukocyte Esterase NEGATIVE (NEGATIVE) 11/15/16 17:10 Urine RBC 0-1 /hpf (0-5) 11/15/16 17:10 Urine WBC 2-5 /hpf (0-5) H 11/15/16 17:10 Ur Epithelial Cells RARE /lpf (FEW) 11/15/16 17:10 Urine Bacteria OCCASIONAL /hpf (NONE SEEN) 11/15/16 17:10 Urine Mucus FEW /lpf (FEW) 11/15/16 17:10 RPR NONREACTIVE (NONREACTIVE) 11/15/16 16:12 - Physical Exam Vitals and I&O: Vital Signs Temp 98.0 F 11/20/16 14:47 Pulse 85 11/20/16 14:47 Resp 19 11/20/16 14:47 BP 125/81 11/20/16 14:47 Pulse Ox 95 11/20/16 14:47 Intake & Output 11/19/16 11/20/16 11/20/16 18:59 06:59 18:59 Intake Total 780 300 Balance 780 300 Intake: Oral 780 300 Other: # Voids 3 1 # Bowel Movements 1 0 Active Medications: Current Medications Acetaminophen (Tylenol) 650 mg PO Q6H PRN PRN Reason: Mild Pain/Headache/T above 101 Stop: 01/14/17 19:47 Al Hydrox/Mg Hydrox/Simethicone (Maalox) 30 ml PO Q6H PRN PRN Reason: Dyspepsia Stop: 01/14/17 19:47 Donepezil HCl (Aricept) 10 mg PO HS ELEAZAR Stop: 01/14/17 20:59 Last Admin: 11/19/16 20:20 Dose: 10 mg Escitalopram Oxalate (Lexapro) 10 mg PO HS ELEAZAR PRN Reason: Protocol Stop: 01/15/17 20:59 Last Admin: 11/19/16 20:20 Dose: 10 mg Insulin Aspart (Novolog) 0 units SUBQ ACHS ELEAZAR PRN Reason: Protocol Stop: 01/15/17 07:29 Last Admin: 11/20/16 11:49 Dose: 2 units Lorazepam (Ativan) 1 mg PO Q6H PRN; Protocol PRN Reason: Anxiety/Agitation Stop: 01/14/17 19:47 Last Admin: 11/19/16 17:03 Dose: 1 mg Magnesium Hydroxide (Milk Of Magnesia) 30 ml PO HS PRN PRN Reason: Constipation Stop: 01/14/17 19:47 Metformin HCl (Glucophage) 850 mg PO BID [facility] Stop: 01/15/17 08:59 Last Admin: 11/20/16 08:18 Dose: 850 mg Risperidone (Risperdal) 0.5 mg PO BID [facility] Stop: 01/18/17 16:59 Last Admin: 11/20/16 08:18 Dose: 0.5 mg Sitagliptin Phosphate (Januvia) 50 mg PO DAILY [facility] Stop: 01/15/17 08:59 Last Admin: 11/20/16 08:19 Dose: 50 mg Zolpidem Tartrate (Ambien) 5 mg PO HS PRN PRN Reason: Insomnia Stop: 01/14/17 19:47 General: alert HEENT: NC/AT, PERRLA Neck: Supple Lungs: CTAB Cardiovascular: RRR, Normal S1, Normal S2, without murmur Abdomen: soft, non-tender, non-distended Extremities: clear Neurological: no change, alert Internal Medicine Assmt/Plan - Assessment Assessment: HTN Dementia si - Plan Plan: monitor bp continue bp meds psych f/u Nutritional Asmnt/Malnutr-PDOC - Dietary Evaluation Malnutrition Findings (Please click <Entered> for more info): Nutritional Asmnt/Malnutrition Start: 11/16/16 12: 33 Text: Status: Complete Freq: Document 11/16/16 18:16 [facility] (Rec: 11/16/16 18:23 [facility] [id number]) Nutritional Asmnt/Malnutrition Patient General Information Nutritional Screening High Risk Screening Diagnosis Suicide ideation, hyperglycemia Pertinent Medical Hx/Surgical Hx HTN, dementia, CVAx2, depression, psychosis Subjective Information Pt is a 70-year-old male from [facility] admitted with chief complaint of suicidal ideation. Pt has dementia and per RN notes, pt is confused. Current Diet Order/ Nutrition Support CCHO, low sodium, mechanical soft chopped Patient / S.O Can't verbalize diet edu Pertinent Medications Glucophage, Januvia Pertinent Labs (11/15) Glucose 227H, A1C 7.9H, Triglycerides 362H. (11/16) POC Glucose 177-228H Nutritional Hx/Data Height 6 ft Height (Calculated Centimeters) 182.9 Current Weight (lbs) 186 lb Weight (Calculated Kilograms) 84.4 Weight (Calculated Grams) 69414.2 [place] Body Weight 172 % [place] Body Weight 108 Weight Status Approriate GI Symptoms GI Symptoms None Food Allergies No Usual diet at home Mechanical soft, CCHO, ERI Skin Integrity/Comment: [place]once 19. Skin intact. Current %PO Good (75-100%) Estimated Nutritional Goals BEE in Kcals: Using Current wt Calories/Kcals/Kg Based on current wt 84.5 kg Kcals Calculated 5871-6246 kcals/day (25-30 kcals/kg) Protein: Using Current wt Protein g/kg: Based on current wt 84.5 kg Protein Calculated 85 gm/day (1 gm/kg) Fluid: ml 9654-1553 ml/day (1 ml/kcal) Nutritional Problem 1. Problem Problem Altered nutrition-related laboratory value related to Etiology DM, possible inconsistent carbohydrate intake as evidenced by Signs/Symptoms: A1C 7.9%, admitting glucose 227 mg/dl. Malnutrition Related to Morbid Obesity Malnutrition related to morbid obesity No Intervention/Recommendation Recommendations by RD Dietary Education by RD1 Increase Calorie Intake Comments 1. Recommend CCHO-90 GM to better meet pt's nutritional needs. Adequate carbohydrate intake will help to regulate blood glucose. 2. Educate pt or family on CCHO diet, as able. Expected Outcomes/Goals Expected Outcomes/Goals Blood glucose levels will trend towards desired parameters. Physician Parameters for PEM Normal Weight % 90% - 110% (Normal) Body Mass Index (BMI) 19 - 24 (Normal) Serum Albumin (g/dl) 3.5 - 5.0 (Normal)
[2016-11-20] MEDS: Escitalopram Oxalate 5 mg Tab PO SCH (20:29)
--- NOTE | 2016-11-20 20:54 | Progress Notes ---
DATE: 11/20/2016 PSYCHIATRIC PROGRESS NOTE TIME PATIENT SEEN: 07:45 a.m. SUBJECTIVE: Staff was spoken to. The patient is interviewed. The patient has been isolative and withdrawn, pacing most of the time on the unit. Personal hygiene continues to be very poor. The patient is getting easily agitated and has been calling 911. Frequently stating that he needs to be out of here for no reason. The patient's insight and judgment are noted to be very much impaired. Coping skills are noted to be very poor. The patient has been getting very argumentative and irritable. No side effects to the medications are noted. The patient is currently on Risperdal 0.5 mg twice a day and citalopram 10 mg in the morning. ASSESSMENT: The patient is still depressed and psychotic. PLAN: To continue the patient with supportive therapy. I encouraged the patient to verbalize the concerns rather than to act out. JOB# [id number]
[2016-11-21] MEDS: INSULIN ASPART, RECOMBINANT 100 UNITS/ML SUBQ SCH ×4 (06:56→21:11)
--- NOTE | 2016-11-21 13:44 | Internal Medicine Prog Note ---
Internal Medicine Subjective - Subjective Service Date: 11/21/16 Patient is:: awake Per staff patient has:: no adverse event Internal Medicine Objective - Results Result Diagrams: 11/15/16 16:12 11/15/16 16:12 Recent Labs: Laboratory Last Values WBC 11.7 Th/cmm (4.8-10.8) H 11/15/16 16:12 RBC 4.58 Mil/cmm (3.80-5.80) 11/15/16 16:12 Hgb 13.6 gm/dL (12.6-17.4) 11/15/16 16:12 Hct 40.8 % (39.0-49.0) 11/15/16 16:12 MCV 89.1 fl (80-99) 11/15/16 16:12 MCH 29.7 pg (27.0-31.0) 11/15/16 16:12 MCHC Differential 33.3 pg (28.0-36.0) 11/15/16 16:12 RDW 12.6 % (11.5-20.0) 11/15/16 16:12 Plt Count 332 Th/cmm (150-400) 11/15/16 16:12 MPV 7.3 fl 11/15/16 16:12 Neutrophils % 75.2 % (40.0-80.0) 11/15/16 16:12 Lymphocytes % 15.0 % (20.0-50.0) L 11/15/16 16:12 Monocytes % 8.5 % (2.0-10.0) 11/15/16 16:12 Eosinophils % 0.9 % (0.0-5.0) 11/15/16 16:12 Basophils % 0.4 % (0.0-2.0) 11/15/16 16:12 Sodium 134 mEq/L (136-145) L 11/15/16 16:12 Potassium 4.1 mEq/L (3.5-5.1) 11/15/16 16:12 Chloride 103 mEq/L (98-107) 11/15/16 16:12 Carbon Dioxide 27.5 mEq/L (21.0-31.0) 11/15/16 16:12 Anion Gap 7.6 (7.0-16.0) 11/15/16 16:12 BUN 23 mg/dL (7-25) 11/15/16 16:12 Creatinine 1.2 mg/dL (0.7-1.3) 11/15/16 16:12 Est GFR ( Amer) > 60.0 ml/min (>90) 11/15/16 16:12 Est GFR (Non-Af Amer) > 60.0 ml/min 11/15/16 16:12 BUN/Creatinine Ratio 19.2 11/15/16 16:12 Glucose 227 mg/dL (70-105) H 11/15/16 16:12 POC Glucose 166 MG/DL (70 - 105) H 11/21/16 11:52 Hemoglobin A1c % 7.9 % (4.0-6.0) H 11/15/16 16:12 Calcium 9.3 mg/dL (8.6-10.3) 11/15/16 16:12 Total Bilirubin 0.3 mg/dL (0.3-1.0) 11/15/16 16:12 AST 14 U/L (13-39) 11/15/16 16:12 ALT 14 U/L (7-52) 11/15/16 16:12 Alkaline Phosphatase 75 U/L (34-104) 11/15/16 16:12 Total Protein 7.0 gm/dL (6.0-8.3) 11/15/16 16:12 Albumin 4.4 gm/dL (4.2-5.5) 11/15/16 16:12 Globulin 2.6 gm/dL 11/15/16 16:12 Albumin/Globulin Ratio 1.7 (1.0-1.8) 11/15/16 16:12 Triglycerides 362 mg/dL (<150) H 11/15/16 16:12 Cholesterol 133 mg/dL (<200) 11/15/16 16:12 LDL Cholesterol Direct 67 mg/dL (75-193) L 11/15/16 16:12 HDL Cholesterol 32 mg/dL (23-92) 11/15/16 16:12 TSH 1.35 uIU/ml (0.34-5.60) 11/15/16 16:12 Urine Source CLEAN C 11/15/16 17:10 Urine Color YELLOW 11/15/16 17:10 Urine Clarity CLEAR (CLEAR) 11/15/16 17:10 Urine pH 6.0 (4.6 - 8.0) 11/15/16 17:10 Ur Specific [place] 1.020 (1.005-1.030) 11/15/16 17:10 Urine Protein NEGATIVE mg/dL (NEGATIVE) 11/15/16 17:10 Urine Glucose (UA) 500 mg/dL (NEGATIVE) H 11/15/16 17:10 Urine Ketones NEGATIVE mg/dL (NEGATIVE) 11/15/16 17:10 Urine Blood NEGATIVE (NEGATIVE) 11/15/16 17:10 Urine Nitrate NEGATIVE (NEGATIVE) 11/15/16 17:10 Urine Bilirubin NEGATIVE (NEGATIVE) 11/15/16 17:10 Urine Urobilinogen 0.2 E.U./dL (0.2 - 1.0) 11/15/16 17:10 Ur Leukocyte Esterase NEGATIVE (NEGATIVE) 11/15/16 17:10 Urine RBC 0-1 /hpf (0-5) 11/15/16 17:10 Urine WBC 2-5 /hpf (0-5) H 11/15/16 17:10 Ur Epithelial Cells RARE /lpf (FEW) 11/15/16 17:10 Urine Bacteria OCCASIONAL /hpf (NONE SEEN) 11/15/16 17:10 Urine Mucus FEW /lpf (FEW) 11/15/16 17:10 RPR NONREACTIVE (NONREACTIVE) 11/15/16 16:12 - Physical Exam Vitals and I&O: Vital Signs Temp 98.8 F 11/21/16 06:35 Pulse 91 11/21/16 06:35 Resp 19 11/21/16 06:35 BP 111/75 11/21/16 06:35 Pulse Ox 98 11/21/16 06:35 Intake & Output 11/20/16 11/21/16 11/21/16 18:59 06:59 18:59 Intake Total 1200 240 Balance 1200 240 Intake: Oral 1200 240 Other: # Voids 5 3 # Bowel Movements 2 0 Active Medications: Current Medications Acetaminophen (Tylenol) 650 mg PO Q6H PRN PRN Reason: Mild Pain/Headache/T above 101 Stop: 01/14/17 19:47 Al Hydrox/Mg Hydrox/Simethicone (Maalox) 30 ml PO Q6H PRN PRN Reason: Dyspepsia Stop: 01/14/17 19:47 Donepezil HCl (Aricept) 10 mg PO HS ELEAZAR Stop: 01/14/17 20:59 Last Admin: 11/20/16 20:30 Dose: 10 mg Escitalopram Oxalate (Lexapro) 10 mg PO HS ELEAZAR PRN Reason: Protocol Stop: 01/15/17 20:59 Last Admin: 11/20/16 20:29 Dose: 10 mg Insulin Aspart (Novolog) 0 units SUBQ ACHS ELEAZAR PRN Reason: Protocol Stop: 01/15/17 07:29 Last Admin: 11/21/16 06:56 Dose: Not Given Lorazepam (Ativan) 1 mg PO Q6H PRN; Protocol PRN Reason: Anxiety/Agitation Stop: 01/14/17 19:47 Last Admin: 11/20/16 16:46 Dose: 1 mg Magnesium Hydroxide (Milk Of Magnesia) 30 ml PO HS PRN PRN Reason: Constipation Stop: 01/14/17 19:47 Metformin HCl (Glucophage) 850 mg PO BID ELEAZAR Stop: 01/15/17 08:59 Last Admin: 11/21/16 08:34 Dose: 850 mg Risperidone (Risperdal) 0.5 mg PO BID [facility] Stop: 01/18/17 16:59 Last Admin: 11/21/16 08:34 Dose: 0.5 mg Sitagliptin Phosphate (Januvia) 50 mg PO DAILY [facility] Stop: 01/15/17 08:59 Last Admin: 11/21/16 08:35 Dose: 50 mg Zolpidem Tartrate (Ambien) 5 mg PO HS PRN PRN Reason: Insomnia Stop: 01/14/17 19:47 General: alert HEENT: NC/AT, PERRLA Neck: Supple Lungs: CTAB Cardiovascular: RRR, Normal S1, Normal S2, without murmur Abdomen: soft, non-tender, non-distended Extremities: clear Neurological: no change, alert Internal Medicine Assmt/Plan - Assessment Assessment: HTN Dementia si - Plan Plan: monitor bp continue bp meds psych f/u Nutritional Asmnt/Malnutr-PDOC - Dietary Evaluation Malnutrition Findings (Please click <Entered> for more info): Nutritional Asmnt/Malnutrition Start: 11/16/16 12: 33 Text: Status: Complete Freq: Document 11/16/16 18:16 [facility] (Rec: 11/16/16 18:23 [facility] [id number]) Nutritional Asmnt/Malnutrition Patient General Information Nutritional Screening High Risk Screening Diagnosis Suicide ideation, hyperglycemia Pertinent Medical Hx/Surgical Hx HTN, dementia, CVAx2, depression, psychosis Subjective Information Pt is a 70-year-old male from [facility] admitted with chief complaint of suicidal ideation. Pt has dementia and per RN notes, pt is confused. Current Diet Order/ Nutrition Support CCHO, low sodium, mechanical soft chopped Patient / S.O Can't verbalize diet edu Pertinent Medications Glucophage, Januvia Pertinent Labs (11/15) Glucose 227H, A1C 7.9H, Triglycerides 362H. (11/16) POC Glucose 177-228H Nutritional Hx/Data Height 6 ft Height (Calculated Centimeters) 182.9 Current Weight (lbs) 186 lb Weight (Calculated Kilograms) 84.4 Weight (Calculated Grams) 72423.2 [place] Body Weight 172 % [place] Body Weight 108 Weight Status Approriate GI Symptoms GI Symptoms None Food Allergies No Usual diet at home Mechanical soft, CCHO, ERI Skin Integrity/Comment: [place] 19. Skin intact. Current %PO Good (75-100%) Estimated Nutritional Goals BEE in Kcals: Using Current wt Calories/Kcals/Kg Based on current wt 84.5 kg Kcals Calculated 4634-5503 kcals/day (25-30 kcals/kg) Protein: Using Current wt Protein g/kg: Based on current wt 84.5 kg Protein Calculated 85 gm/day (1 gm/kg) Fluid: ml 2541-8978 ml/day (1 ml/kcal) Nutritional Problem 1. Problem Problem Altered nutrition-related laboratory value related to Etiology DM, possible inconsistent carbohydrate intake as evidenced by Signs/Symptoms: A1C 7.9%, admitting glucose 227 mg/dl. Malnutrition Related to Morbid Obesity Malnutrition related to morbid obesity No Intervention/Recommendation Recommendations by RD Dietary Education by RD1 Increase Calorie Intake Comments 1. Recommend CCHO-90 GM to better meet pt's nutritional needs. Adequate carbohydrate intake will help to regulate blood glucose. 2. Educate pt or family on CCHO diet, as able. Expected Outcomes/Goals Expected Outcomes/Goals Blood glucose levels will trend towards desired parameters. Physician Parameters for PEM Normal Weight % 90% - 110% (Normal) Body Mass Index (BMI) 19 - 24 (Normal) Serum Albumin (g/dl) 3.5 - 5.0 (Normal)
[2016-11-21] MEDS: Escitalopram Oxalate 5 mg Tab PO SCH (20:58)
--- NOTE | 2016-11-22 03:50 | Progress Notes ---
DATE: 11/21/2016 PSYCHIATRIC PROGRESS NOTE SUBJECTIVE: Staff was spoken to. The patient is interviewed. Mood is noted to be irritable. Affect is constricted. The patient's insight and judgment are noted to be still impaired. Impulse control is noted to be poor. The patient out of nowhere has been stating that he wanted to end his life. The patient has no insight. The patient has been very paranoid and is stating that everyone is that is the reason why they hocked him up in here. The patient's coping skills at this time are noted to be extremely poor. The patient is currently on Lexapro 10 mg and the Risperdal 0.5 mg twice a day and has been able to tolerate the medications. No side effects to the medications are noted to the patient. ASSESSMENT: The patient is still depressed and threatening suicide. PLAN: To closely monitor the patient. I encouraged the patient to verbalize the concerns rather than to act out. [facility]# [id number]
[2016-11-22] MEDS: INSULIN ASPART, RECOMBINANT 100 UNITS/ML SUBQ SCH ×3 (06:31→20:38)
--- NOTE | 2016-11-22 10:35 | Progress Notes ---
DATE: 11/22/2016 PSYCHIATRIC PROGRESS NOTE SUBJECTIVE: Staff was spoken to. The patient is interviewed. Mood is noted to be less irritable. The patient has suicidal ideation, but no plans voices. Today insight and judgment noted to be improving at this time. Impulse control seems to be improving. The patient has been able to verbalize the concerns today. The patient is denying any command hallucinations, paranoia is noted. ASSESSMENT: The patient's depression and psychosis is resolving. PLAN: To continue the patient with supportive therapy and follow. JOB# [id number]
--- NOTE | 2016-11-22 14:31 | Internal Medicine Prog Note ---
Internal Medicine Subjective - Subjective Service Date: 11/22/16 Patient is:: awake Per staff patient has:: no adverse event Internal Medicine Objective - Results Result Diagrams: 11/15/16 16:12 11/15/16 16:12 Recent Labs: Laboratory Last Values WBC 11.7 Th/cmm (4.8-10.8) H 11/15/16 16:12 RBC 4.58 Mil/cmm (3.80-5.80) 11/15/16 16:12 Hgb 13.6 gm/dL (12.6-17.4) 11/15/16 16:12 Hct 40.8 % (39.0-49.0) 11/15/16 16:12 MCV 89.1 fl (80-99) 11/15/16 16:12 MCH 29.7 pg (27.0-31.0) 11/15/16 16:12 MCHC Differential 33.3 pg (28.0-36.0) 11/15/16 16:12 RDW 12.6 % (11.5-20.0) 11/15/16 16:12 Plt Count 332 Th/cmm (150-400) 11/15/16 16:12 MPV 7.3 fl 11/15/16 16:12 Neutrophils % 75.2 % (40.0-80.0) 11/15/16 16:12 Lymphocytes % 15.0 % (20.0-50.0) L 11/15/16 16:12 Monocytes % 8.5 % (2.0-10.0) 11/15/16 16:12 Eosinophils % 0.9 % (0.0-5.0) 11/15/16 16:12 Basophils % 0.4 % (0.0-2.0) 11/15/16 16:12 Sodium 134 mEq/L (136-145) L 11/15/16 16:12 Potassium 4.1 mEq/L (3.5-5.1) 11/15/16 16:12 Chloride 103 mEq/L (98-107) 11/15/16 16:12 Carbon Dioxide 27.5 mEq/L (21.0-31.0) 11/15/16 16:12 Anion Gap 7.6 (7.0-16.0) 11/15/16 16:12 BUN 23 mg/dL (7-25) 11/15/16 16:12 Creatinine 1.2 mg/dL (0.7-1.3) 11/15/16 16:12 Est GFR ( Amer) > 60.0 ml/min (>90) 11/15/16 16:12 Est GFR (Non-Af Amer) > 60.0 ml/min 11/15/16 16:12 BUN/Creatinine Ratio 19.2 11/15/16 16:12 Glucose 227 mg/dL (70-105) H 11/15/16 16:12 POC Glucose 202 MG/DL (70 - 105) H 11/22/16 11:40 Hemoglobin A1c % 7.9 % (4.0-6.0) H 11/15/16 16:12 Calcium 9.3 mg/dL (8.6-10.3) 11/15/16 16:12 Total Bilirubin 0.3 mg/dL (0.3-1.0) 11/15/16 16:12 AST 14 U/L (13-39) 11/15/16 16:12 ALT 14 U/L (7-52) 11/15/16 16:12 Alkaline Phosphatase 75 U/L (34-104) 11/15/16 16:12 Total Protein 7.0 gm/dL (6.0-8.3) 11/15/16 16:12 Albumin 4.4 gm/dL (4.2-5.5) 11/15/16 16:12 Globulin 2.6 gm/dL 11/15/16 16:12 Albumin/Globulin Ratio 1.7 (1.0-1.8) 11/15/16 16:12 Triglycerides 362 mg/dL (<150) H 11/15/16 16:12 Cholesterol 133 mg/dL (<200) 11/15/16 16:12 LDL Cholesterol Direct 67 mg/dL (75-193) L 11/15/16 16:12 HDL Cholesterol 32 mg/dL (23-92) 11/15/16 16:12 TSH 1.35 uIU/ml (0.34-5.60) 11/15/16 16:12 Urine Source CLEAN C 11/15/16 17:10 Urine Color YELLOW 11/15/16 17:10 Urine Clarity CLEAR (CLEAR) 11/15/16 17:10 Urine pH 6.0 (4.6 - 8.0) 11/15/16 17:10 Ur Specific [place] 1.020 (1.005-1.030) 11/15/16 17:10 Urine Protein NEGATIVE mg/dL (NEGATIVE) 11/15/16 17:10 Urine Glucose (UA) 500 mg/dL (NEGATIVE) H 11/15/16 17:10 Urine Ketones NEGATIVE mg/dL (NEGATIVE) 11/15/16 17:10 Urine Blood NEGATIVE (NEGATIVE) 11/15/16 17:10 Urine Nitrate NEGATIVE (NEGATIVE) 11/15/16 17:10 Urine Bilirubin NEGATIVE (NEGATIVE) 11/15/16 17:10 Urine Urobilinogen 0.2 E.U./dL (0.2 - 1.0) 11/15/16 17:10 Ur Leukocyte Esterase NEGATIVE (NEGATIVE) 11/15/16 17:10 Urine RBC 0-1 /hpf (0-5) 11/15/16 17:10 Urine WBC 2-5 /hpf (0-5) H 11/15/16 17:10 Ur Epithelial Cells RARE /lpf (FEW) 11/15/16 17:10 Urine Bacteria OCCASIONAL /hpf (NONE SEEN) 11/15/16 17:10 Urine Mucus FEW /lpf (FEW) 11/15/16 17:10 RPR NONREACTIVE (NONREACTIVE) 11/15/16 16:12 - Physical Exam Vitals and I&O: Vital Signs Temp 97.2 F 11/22/16 06:52 Pulse 99 11/22/16 06:52 Resp 18 11/22/16 06:52 BP 117/84 11/21/16 20:00 Pulse Ox 99 11/22/16 06:52 Intake & Output 11/21/16 11/22/16 11/22/16 18:59 06:59 18:59 Intake Total 800 120 Balance 800 120 Intake: Oral 800 120 Other: # Voids 3 2 # Bowel Movements 1 Active Medications: Current Medications Acetaminophen (Tylenol) 650 mg PO Q6H PRN PRN Reason: Mild Pain/Headache/T above 101 Stop: 01/14/17 19:47 Al Hydrox/Mg Hydrox/Simethicone (Maalox) 30 ml PO Q6H PRN PRN Reason: Dyspepsia Stop: 01/14/17 19:47 Donepezil HCl (Aricept) 10 mg PO HS ELEAZAR Stop: 01/14/17 20:59 Last Admin: 11/21/16 20:58 Dose: 10 mg Escitalopram Oxalate (Lexapro) 10 mg PO HS ELEAZAR PRN Reason: Protocol Stop: 01/15/17 20:59 Last Admin: 11/21/16 20:58 Dose: 10 mg Insulin Aspart (Novolog) 0 units SUBQ ACHS ELEAZAR PRN Reason: Protocol Stop: 01/15/17 07:29 Last Admin: 11/22/16 12:39 Dose: Not Given Lorazepam (Ativan) 1 mg PO Q6H PRN; Protocol PRN Reason: Anxiety/Agitation Stop: 01/14/17 19:47 Last Admin: 11/21/16 14:53 Dose: 1 mg Magnesium Hydroxide (Milk Of Magnesia) 30 ml PO HS PRN PRN Reason: Constipation Stop: 01/14/17 19:47 Metformin HCl (Glucophage) 850 mg PO BID ELEAZAR Stop: 01/15/17 08:59 Last Admin: 11/22/16 09:06 Dose: 850 mg Risperidone (Risperdal) 0.5 mg PO BID [facility] Stop: 01/18/17 16:59 Last Admin: 11/22/16 09:06 Dose: 0.5 mg Sitagliptin Phosphate (Januvia) 50 mg PO DAILY [facility] Stop: 01/15/17 08:59 Last Admin: 11/22/16 09:06 Dose: 50 mg Zolpidem Tartrate (Ambien) 5 mg PO HS PRN PRN Reason: Insomnia Stop: 01/14/17 19:47 General: alert HEENT: NC/AT, PERRLA Neck: Supple Lungs: CTAB Cardiovascular: RRR, Normal S1, Normal S2, without murmur Abdomen: soft, non-tender, non-distended Extremities: clear Neurological: no change, alert Internal Medicine Assmt/Plan - Assessment Assessment: HTN Dementia si - Plan Plan: monitor bp continue bp meds psych f/u Nutritional Asmnt/Malnutr-PDOC - Dietary Evaluation Malnutrition Findings (Please click <Entered> for more info): Nutritional Asmnt/Malnutrition Start: 11/16/16 12: 33 Text: Status: Complete Freq: Document 11/16/16 18:16 [facility] (Rec: 11/16/16 18:23 [facility] [id number]) Nutritional Asmnt/Malnutrition Patient General Information Nutritional Screening High Risk Screening Diagnosis Suicide ideation, hyperglycemia Pertinent Medical Hx/Surgical Hx HTN, dementia, CVAx2, depression, psychosis Subjective Information Pt is a 70-year-old male from [facility] admitted with chief complaint of suicidal ideation. Pt has dementia and per RN notes, pt is confused. Current Diet Order/ Nutrition Support CCHO, low sodium, mechanical soft chopped Patient / S.O Can't verbalize diet edu Pertinent Medications Glucophage, Januvia Pertinent Labs (11/15) Glucose 227H, A1C 7.9H, Triglycerides 362H. (11/16) POC Glucose 177-228H Nutritional Hx/Data Height 6 ft Height (Calculated Centimeters) 182.9 Current Weight (lbs) 186 lb Weight (Calculated Kilograms) 84.4 Weight (Calculated Grams) 80307.2 [place] Body Weight 172 % [place] Body Weight 108 Weight Status Approriate GI Symptoms GI Symptoms None Food Allergies No Usual diet at home Mechanical soft, CCHO, ERI Skin Integrity/Comment: [place] 19. Skin intact. Current %PO Good (75-100%) Estimated Nutritional Goals BEE in Kcals: Using Current wt Calories/Kcals/Kg Based on current wt 84.5 kg Kcals Calculated 6612-9495 kcals/day (25-30 kcals/kg) Protein: Using Current wt Protein g/kg: Based on current wt 84.5 kg Protein Calculated 85 gm/day (1 gm/kg) Fluid: ml 1040-9293 ml/day (1 ml/kcal) Nutritional Problem 1. Problem Problem Altered nutrition-related laboratory value related to Etiology DM, possible inconsistent carbohydrate intake as evidenced by Signs/Symptoms: A1C 7.9%, admitting glucose 227 mg/dl. Malnutrition Related to Morbid Obesity Malnutrition related to morbid obesity No Intervention/Recommendation Recommendations by RD Dietary Education by RD1 Increase Calorie Intake Comments 1. Recommend CCHO-90 GM to better meet pt's nutritional needs. Adequate carbohydrate intake will help to regulate blood glucose. 2. Educate pt or family on CCHO diet, as able. Expected Outcomes/Goals Expected Outcomes/Goals Blood glucose levels will trend towards desired parameters. Physician Parameters for PEM Normal Weight % 90% - 110% (Normal) Body Mass Index (BMI) 19 - 24 (Normal) Serum Albumin (g/dl) 3.5 - 5.0 (Normal)
[2016-11-22] MEDS: Escitalopram Oxalate 5 mg Tab PO SCH (20:37)
[2016-11-23] MEDS: INSULIN ASPART, RECOMBINANT 100 UNITS/ML SUBQ SCH ×2 (06:47→12:38)
--- NOTE | 2016-11-23 10:41 | Internal Medicine Prog Note ---
Internal Medicine Subjective - Subjective Service Date: 11/23/16 Patient is:: awake Per staff patient has:: no adverse event Internal Medicine Objective - Results Result Diagrams: 11/15/16 16:12 11/15/16 16:12 Recent Labs: Laboratory Last Values WBC 11.7 Th/cmm (4.8-10.8) H 11/15/16 16:12 RBC 4.58 Mil/cmm (3.80-5.80) 11/15/16 16:12 Hgb 13.6 gm/dL (12.6-17.4) 11/15/16 16:12 Hct 40.8 % (39.0-49.0) 11/15/16 16:12 MCV 89.1 fl (80-99) 11/15/16 16:12 MCH 29.7 pg (27.0-31.0) 11/15/16 16:12 MCHC Differential 33.3 pg (28.0-36.0) 11/15/16 16:12 RDW 12.6 % (11.5-20.0) 11/15/16 16:12 Plt Count 332 Th/cmm (150-400) 11/15/16 16:12 MPV 7.3 fl 11/15/16 16:12 Neutrophils % 75.2 % (40.0-80.0) 11/15/16 16:12 Lymphocytes % 15.0 % (20.0-50.0) L 11/15/16 16:12 Monocytes % 8.5 % (2.0-10.0) 11/15/16 16:12 Eosinophils % 0.9 % (0.0-5.0) 11/15/16 16:12 Basophils % 0.4 % (0.0-2.0) 11/15/16 16:12 Sodium 134 mEq/L (136-145) L 11/15/16 16:12 Potassium 4.1 mEq/L (3.5-5.1) 11/15/16 16:12 Chloride 103 mEq/L (98-107) 11/15/16 16:12 Carbon Dioxide 27.5 mEq/L (21.0-31.0) 11/15/16 16:12 Anion Gap 7.6 (7.0-16.0) 11/15/16 16:12 BUN 23 mg/dL (7-25) 11/15/16 16:12 Creatinine 1.2 mg/dL (0.7-1.3) 11/15/16 16:12 Est GFR ( Amer) > 60.0 ml/min (>90) 11/15/16 16:12 Est GFR (Non-Af Amer) > 60.0 ml/min 11/15/16 16:12 BUN/Creatinine Ratio 19.2 11/15/16 16:12 Glucose 227 mg/dL (70-105) H 11/15/16 16:12 POC Glucose 152 MG/DL (70 - 105) H 11/22/16 20:05 Hemoglobin A1c % 7.9 % (4.0-6.0) H 11/15/16 16:12 Calcium 9.3 mg/dL (8.6-10.3) 11/15/16 16:12 Total Bilirubin 0.3 mg/dL (0.3-1.0) 11/15/16 16:12 AST 14 U/L (13-39) 11/15/16 16:12 ALT 14 U/L (7-52) 11/15/16 16:12 Alkaline Phosphatase 75 U/L (34-104) 11/15/16 16:12 Total Protein 7.0 gm/dL (6.0-8.3) 11/15/16 16:12 Albumin 4.4 gm/dL (4.2-5.5) 11/15/16 16:12 Globulin 2.6 gm/dL 11/15/16 16:12 Albumin/Globulin Ratio 1.7 (1.0-1.8) 11/15/16 16:12 Triglycerides 362 mg/dL (<150) H 11/15/16 16:12 Cholesterol 133 mg/dL (<200) 11/15/16 16:12 LDL Cholesterol Direct 67 mg/dL (75-193) L 11/15/16 16:12 HDL Cholesterol 32 mg/dL (23-92) 11/15/16 16:12 TSH 1.35 uIU/ml (0.34-5.60) 11/15/16 16:12 Urine Source CLEAN C 11/15/16 17:10 Urine Color YELLOW 11/15/16 17:10 Urine Clarity CLEAR (CLEAR) 11/15/16 17:10 Urine pH 6.0 (4.6 - 8.0) 11/15/16 17:10 Ur Specific [place] 1.020 (1.005-1.030) 11/15/16 17:10 Urine Protein NEGATIVE mg/dL (NEGATIVE) 11/15/16 17:10 Urine Glucose (UA) 500 mg/dL (NEGATIVE) H 11/15/16 17:10 Urine Ketones NEGATIVE mg/dL (NEGATIVE) 11/15/16 17:10 Urine Blood NEGATIVE (NEGATIVE) 11/15/16 17:10 Urine Nitrate NEGATIVE (NEGATIVE) 11/15/16 17:10 Urine Bilirubin NEGATIVE (NEGATIVE) 11/15/16 17:10 Urine Urobilinogen 0.2 E.U./dL (0.2 - 1.0) 11/15/16 17:10 Ur Leukocyte Esterase NEGATIVE (NEGATIVE) 11/15/16 17:10 Urine RBC 0-1 /hpf (0-5) 11/15/16 17:10 Urine WBC 2-5 /hpf (0-5) H 11/15/16 17:10 Ur Epithelial Cells RARE /lpf (FEW) 11/15/16 17:10 Urine Bacteria OCCASIONAL /hpf (NONE SEEN) 11/15/16 17:10 Urine Mucus FEW /lpf (FEW) 11/15/16 17:10 RPR NONREACTIVE (NONREACTIVE) 11/15/16 16:12 - Physical Exam Vitals and I&O: Vital Signs Temp 97.3 F 11/23/16 06:43 Pulse 84 11/23/16 06:43 Resp 20 11/23/16 06:43 BP 109/73 11/23/16 06:43 Pulse Ox 98 11/23/16 06:43 Intake & Output 11/22/16 11/23/16 11/23/16 18:59 06:59 18:59 Intake Total 1800 120 Balance 1800 120 Intake: Oral 1800 120 Other: # Voids 4 3 # Bowel Movements 1 Active Medications: Current Medications Acetaminophen (Tylenol) 650 mg PO Q6H PRN PRN Reason: Mild Pain/Headache/T above 101 Stop: 01/14/17 19:47 Al Hydrox/Mg Hydrox/Simethicone (Maalox) 30 ml PO Q6H PRN PRN Reason: Dyspepsia Stop: 01/14/17 19:47 Last Admin: 11/23/16 00:34 Dose: 30 ml Donepezil HCl (Aricept) 10 mg PO HS ELEAZAR Stop: 01/14/17 20:59 Last Admin: 11/22/16 20:37 Dose: 10 mg Escitalopram Oxalate (Lexapro) 10 mg PO HS ELEAZAR PRN Reason: Protocol Stop: 01/15/17 20:59 Last Admin: 11/22/16 20:37 Dose: 10 mg Insulin Aspart (Novolog) 0 units SUBQ ACHS ELEAZAR PRN Reason: Protocol Stop: 01/15/17 07:29 Last Admin: 11/23/16 06:47 Dose: Not Given Lorazepam (Ativan) 1 mg PO Q6H PRN; Protocol PRN Reason: Anxiety/Agitation Stop: 01/14/17 19:47 Last Admin: 11/21/16 14:53 Dose: 1 mg Magnesium Hydroxide (Milk Of Magnesia) 30 ml PO HS PRN PRN Reason: Constipation Stop: 01/14/17 19:47 Metformin HCl (Glucophage) 850 mg PO BID ELEAZAR Stop: 01/15/17 08:59 Last Admin: 11/23/16 09:34 Dose: 850 mg Risperidone (Risperdal) 0.5 mg PO BID ELEAZAR Stop: 01/18/17 16:59 Last Admin: 11/23/16 09:34 Dose: 0.5 mg Sitagliptin Phosphate (Januvia) 50 mg PO DAILY [facility] Stop: 01/15/17 08:59 Last Admin: 11/23/16 09:34 Dose: 50 mg Zolpidem Tartrate (Ambien) 5 mg PO HS PRN PRN Reason: Insomnia Stop: 01/14/17 19:47 General: alert HEENT: NC/AT, PERRLA Neck: Supple Lungs: CTAB Cardiovascular: RRR, Normal S1, Normal S2, without murmur Abdomen: soft, non-tender, non-distended Extremities: clear Neurological: no change, alert Internal Medicine Assmt/Plan - Assessment Assessment: HTN Dementia si - Plan Plan: monitor bp continue bp meds psych f/u Nutritional Asmnt/Malnutr-PDOC - Dietary Evaluation Malnutrition Findings (Please click <Entered> for more info): Nutritional Asmnt/Malnutrition Start: 11/16/16 12: 33 Text: Status: Complete Freq: Document 11/16/16 18:16 [email or web address] (Rec: 11/16/16 18:23 [facility] [id number]) Nutritional Asmnt/Malnutrition Patient General Information Nutritional Screening High Risk Screening Diagnosis Suicide ideation, hyperglycemia Pertinent Medical Hx/Surgical Hx HTN, dementia, CVAx2, depression, psychosis Subjective Information Pt is a 70-year-old male from [facility] admitted with chief complaint of suicidal ideation. Pt has dementia and per RN notes, pt is confused. Current Diet Order/ Nutrition Support CCHO, low sodium, mechanical soft chopped Patient / S.O Can't verbalize diet edu Pertinent Medications Glucophage, Januvia Pertinent Labs (11/15) Glucose 227H, A1C 7.9H, Triglycerides 362H. (11/16) POC Glucose 177-228H Nutritional Hx/Data Height 6 ft Height (Calculated Centimeters) 182.9 Current Weight (lbs) 186 lb Weight (Calculated Kilograms) 84.4 Weight (Calculated Grams) 48387.2 [place] Body Weight 172 % [place] Body Weight 108 Weight Status Approriate GI Symptoms GI Symptoms None Food Allergies No Usual diet at home Mechanical soft, CCHO, ERI Skin Integrity/Comment: [place] 19. Skin intact. Current %PO Good (75-100%) Estimated Nutritional Goals BEE in Kcals: Using Current wt Calories/Kcals/Kg Based on current wt 84.5 kg Kcals Calculated 0648-6308 kcals/day (25-30 kcals/kg) Protein: Using Current wt Protein g/kg: Based on current wt 84.5 kg Protein Calculated 85 gm/day (1 gm/kg) Fluid: ml 2684-0506 ml/day (1 ml/kcal) Nutritional Problem 1. Problem Problem Altered nutrition-related laboratory value related to Etiology DM, possible inconsistent carbohydrate intake as evidenced by Signs/Symptoms: A1C 7.9%, admitting glucose 227 mg/dl. Malnutrition Related to Morbid Obesity Malnutrition related to morbid obesity No Intervention/Recommendation Recommendations by RD Dietary Education by RD1 Increase Calorie Intake Comments 1. Recommend CCHO-90 GM to better meet pt's nutritional needs. Adequate carbohydrate intake will help to regulate blood glucose. 2. Educate pt or family on CCHO diet, as able. Expected Outcomes/Goals Expected Outcomes/Goals Blood glucose levels will trend towards desired parameters. Physician Parameters for PEM Normal Weight % 90% - 110% (Normal) Body Mass Index (BMI) 19 - 24 (Normal) Serum Albumin (g/dl) 3.5 - 5.0 (Normal)
--- NOTE | 2016-11-23 10:46 | Progress Notes ---
DATE: 11/23/2016 PSYCHIATRIC PROGRESS NOTE SUBJECTIVE: Staff was spoken to. The patient is interviewed. Mood is less irritable. Affect is constricted. The patient is, however, stating that he had difficult time last night to fall asleep. Appetite is noted to be improving. The patient has paranoia, but denies any command hallucinations today. No side effects to the medications are noted. No aggressive behavior is reported by the staff at this time. manager access has been requested to get in touch with the [facility] to see if the patient can be accepted over there. No side effects to the medications are noted at this time. PLAN: To continue the patient with the current medications. I encouraged the patient to verbalize the concerns rather than to act out. [facility]# [id number]
--- NOTE | 2016-11-26 04:13 | Admit Criteria Form ---
Admit Criteria Forms - Admit Criteria Diagnosis: PSYCHIATRIC DISORDERS (Place 'X' for any and all applicable criteria): Ongoing inpatient care may be needed for 1 or more of the following(1)(2)(3)(4)( 6)(7)(8): [X ]I. Danger to self or others not manageable at lower level of care. [ ]II. Grave disability (eg, inability to perform self care necessary at lower level of care) [ ]III. Agitation or inappropriate behavior interfering with care for primary condition (eg, attempting to discontinue lines or drains prematurely, unable to cooperate with respiratory care) [ ]IV. Severe disability or disorder indicated by ALL of the following: [ ]a) Severe behavioral health disorder-related symptoms or condition indicated by 1 or more of the following: [ ]i) Severe problem with cognition, memory, judgment, or impulse control [ ]ii) Severe clinical manifestations (eg, hallucinations, delusions, other acute psychotic symptoms, sade, extreme agitation or anxiety) [ ]b) Patient management at lower level of care is not feasible until acute intervention or modification is initiated. Extended stay beyond goal length of stay for the primary condition may be needed until ALLof the following are present(1)(2)(3)(4)7)02)(23): [ ]a) Danger to self or others is absent or manageable at lower level of care [ ]b) Behavior crisis management, including physical or chemical restraints, is required and is not available at a lower level of care. [ ]c) Behavioral symptoms (e.g., agitation, somnolence, inappropriate behavior) are present, and are not manageable at a lower level of care. [ ]d) Patient cannot understand follow-up treatment and crisis plan. [ ]e) Provider and supports are sufficiently available at lower level of care. [ ]f) Patient can participate (e.g., verify absence of plan for harm) and is in needed of monitoring. The original [facility] [employer] content created by [facility] [employer] has been revised. The portions of the content which have been revised are identified through the use of italic text or in bold, and [facility] [employer] has neither reviewed nor approved the modified material. All other unmodified content is copyright [facility]. Please see references footnoted in the original [facility] edition 2017 Admit Criteria Met?: Yes
== END 2016-11-23 16:30 | disposition home or self-care (01) | DRG 885 ==
LOC: ER 15:57 → GERO 17:43
PROVIDERS: ADMIT Psychiatry & Neurology Psychiatry; ATTEND Psychiatry & Neurology Psychiatry
DX: F33.3 Major depressive disorder, recurrent, severe with psychotic symptoms (principal); F03.91 Unspecified dementia, unspecified severity, with behavioral disturbance; R45.851 Suicidal ideations; I10 Essential (primary) hypertension; F17.210 Nicotine dependence, cigarettes, uncomplicated; E11.65 Type 2 diabetes mellitus with hyperglycemia; Z86.73 Personal history of transient ischemic attack (TIA), and cerebral infarction without residual deficits
CPT/HCPCS: 36415-UA; 80053-TC; 80061-TC; 81001-TC; 82948-90; 83036-90; 84443-TC; 85025-TC; 86592-TC; 90899; 93005; G0410; J1815; J3370; Z7610